=== PATIENT | male | born 1955 | race Caucasian/White ===

== ENCOUNTER → 2021-06-21 12:22 | Outpatient (CLI) | payer MEDICARE, SELFPAY ==
--- NOTE | 2021-06-21 12:28 | CA_ITS ---
APPROVED REPORT EXAM: Comprehensive 2D, Doppler, and color-flow Echocardiogram Vertical Boring Mill Operator: Josie Langford RDCS Ht: 6 ft 0 in Wt: 258lbs BSA: 2.37 BP: 160/84 mmHg Indications: SOA,HTN,OBESITY 2D Dimensions LVOT 2.49 cm (M/F) 1.5-2.5 M-Mode Dimensions RVDd 3.20 cm (0.9-2.6) LA Diam 4.88 cm (1.9-4.0) LVDd 7.53 cm (3.5-5.7) Ao Diam 4.29 cm (2.0-3.7) LVDs 6.59 cm (3.5-5.7) IVSd 1.18 cm (0.6-1.1) PWd 0.98 cm (0.6-1.1) EF (Teich) 26.00% FS 12.50% EDV (Teich) 301.00 mL ESV (Teich) 222.80 mL LV Diastology E Decel Time 83.00 (160-240 msec) E/A Ratio 3.2 MED E' 3.20 (< 7 cm/sec) E'/MED E' Ratio 23.88 (>14) LAT E' 4.50 (<10 cm/sec) E/LAT E' Ratio 16.98 (>14) Aortic Valve AI PHT 361.00 ms Mitral Valve MV E Max Que. 76.00 (40-130 cm/s) MV A Velocity 24.00 (40-130 cm/s) E/A Ratio 3.16 MV Decel. Time 83.00 (160-240 ms) MV PHT 24.00 ms Tricuspid Valve TR P. Velocity 329.00 cm/s RAP Estimate 10.00 mmHg RVSP 53.40 mmHg Left Ventricle Left atrium is moderately enlarged, left ventricle is mildly dilated, there is moderately reduced left ventricular systolic function, visually estimated ejection fraction 35 to 40% with left ventricular global hypokinesis. Diastolic parameters are inconclusive. Right Ventricle Right atrium and right ventricle mildly enlarged with normal contractility. Aortic Valve Aortic valve is thickened and calcified with mild aortic insufficiency. Mitral Valve Mitral valve leaflets are minimally thickened, there is mitral regurgitation present which is difficult to quantify this is likely in moderate to severe range, a transesophageal echocardiogram is recommended for further evaluation. Tricuspid Valve Tricuspid valve grossly normal, there is mild tricuspid regurgitation, tricuspid regurgitation jet velocity is inadequate for calculation of the right ventricular systolic pressure. Pulmonic Valve Pulmonic valve is poorly visualized. Great Vessels Aortic root is normal size. Inferior vena cava is not well visualized. Pericardium No significant pericardial effusion noted. Conclusion 1. Moderately enlarged left atrium, dilated left ventricle, moderate reduction left ventricular systolic function, visually estimated ejection fraction approximately 35 to 40%, left ventricle is globally hypokinetic. Diastolic parameters are inconclusive. 2. Thickened and calcified aortic valve with mild aortic insufficiency. 3. Minimally thickened mitral valve, there is mitral regurgitation which is difficult to quantify as described above, a transesophageal echocardiogram is recommended. 4. No significant pericardial effusion noted. Electronically signed by : Fausto Gary MD 06/22/2021 16:05:01
--- NOTE | 2021-06-21 13:05 | XR_ITS ---
PROCEDURE: XR CHEST 2V CLINICAL HISTORY: dyspnea COMPARISON: No exams were available for comparison FINDINGS: There is mild cardiomegaly without failure. The lungs are clear without infiltrates, suspicious nodules, or pleural effusions. No acute bony abnormalities. IMPRESSION: No acute findings. Dictated by: Cruz Layne MD 06/21/2021 14:38 Cruz Layne MD in [place] 06/21/2021 14:38
== END ==
PROVIDERS: PCP Family Medicine; Visit Provider Internal Medicine
DX: R06.00 Dyspnea, unspecified (principal)
CPT/HCPCS: 71046; 93306

== ENCOUNTER 2021-07-03 11:09 | Day surgery (SDC) | payer MEDICARE, SELFPAY ==
[2021-07-03] VITALS (10 sets, daily range): BP systolic 159–199; BP diastolic 66–112; PULSE 60–76; RESP 18; TEMP 36.7; O2SAT 95–97; BMI 34.8
--- NOTE | 2021-07-03 07:12 | IR_ITS ---
APPROVED REPORT Patient Location: Outpatient Real Property Appraiser: BRENDA Cole RT (R) PROCEDURES Right heart catheterization Left heart catheterization Left ventriculogram Selective coronary angiogram INDICATION Systolic congestive heart failure, Pulmonary hypertension, Class III-IV [place] [employer] heart failure, Worsening angina pectoris, Informed consent was obtained prior to the procedure. COMPLICATIONS NONE Estimated Blood Loss: LESS THAN 10 ML TECHNIQUE One percent lidocaine was used to anesthetize the right anterior aspect of the right wrist. The right radial artery was accessed via the Seldinger technique and a 6 Romansh hydrophilic sheath was placed in the right radial artery. Following this one percent lidocaine was used to anesthetize the right anterior aspect of the right neck. The right internal jugular vein was accessed via the Seldinger technique and a 7 Romansh sheath was placed in the right internal jugular vein. Following this an arterial cocktail was administered using 5000U heparin, 2.5 mg verapamil, 1mg Lidocaine and 800mcg nitroglycerin into the right radial sheath. A trap catheter was used to perform left heart catheterization left ventriculogram and selective coronary angiography while a [place] catheter was used to perform right heart catheterization. Saturations were obtained in the pulmonary artery and right atrium. At the end of the procedure the arterial sheath was removed good hemostasis was achieved using Traclet band. Patient was transferred to the postop holding area in stable condition for venous sheath removal. ANGIOGRAPHIC RESULTS The left main artery Normal The left anterior descending artery Has mild proximal 10% luminal irregularities with mid vessel 10% luminal irregularities. A 1.5 mm first diagonal artery has a mid vessel 70% hazy stenosis The circumflex artery Is nondominant yet still large vessel with mild 10% luminal irregularities The right coronary artery Large dominant with mild diffuse 10% luminal irregularities The LORENZ ventriculogram reveals Moderate left ventricular dilatation severe global hypokinesis estimate ejection fraction 30% The left ventricular end-diastolic pressure 30 mmHg Right atrial pressure 15 mmHg Pulmonary pressure 60/30 mmHg Pulmonary occlusion pressure 25 mmHg Right atrial saturation 76% Pulmonary saturation 75% IMPRESSION Mild nonflow limiting coronary disease Severe nonischemic cardiomyopathy Severe pulmonary hypertension PLAN 1. Standard therapy for systolic heart failure 2. Increase diuretics 3. Offered patient LifeVest while continuing with medical therapy to determine if ejection fraction improves 4. Recommend Covid IgG test to determine if patient previously experienced Covid which could be the etiology for the cardiomyopathy 5. Continue risk factor modification 6. Sleep study Electronically signed by : Frederic Whitehead MD 07/03/2021 13:22:31
[2021-07-03 11:42] LABS: Coronavirus 19, PCR Not Detected (NotDetected); Influenza A, PCR Not Detected (NotDetected); Influenza B, PCR Not Detected (NotDetected)
[2021-07-03 11:54] LABS: Chloride 104 mmol/L (98-107); Potassium 4.6 mmoL/L (3.5-5.1); Sodium 141 mmol/L (136-145)
[2021-07-03 11:57] LABS: Basophils # 0.1 K/mm3 (0-0.2); Basophils % 0.9 % (0.1-2.0); Blood Urea Nitrogen 25 mg/dl (9-20); Creatinine Clearance Estimated 74 mL/min (50-200); Eosinophils # 0.3 K/mm3 (0.0-0.4); Eosinophils % 3.5 % (0.1-12.0); Estimated Glomerular Filt Rate 43 ml/min (>60); GFR (African American) 52 ML/MIN (>60); Hematocrit 55.3 % (42.0-52.0); Hemoglobin 17.3 g/dL (14.1-18.0); Lymphocytes # 1.7 K/mm3 (0.7-4.5); Lymphocytes % 19.5 % (10-50); Mean Corpuscular HGB Conc 31.3 g/dL (31.8-35.4); Mean Corpuscular Hemoglobin 32.1 pg (27.0-31.2); Mean Corpuscular Volume 102.6 fl (80-94); Mean Platelet Volume 9.2 fl (7.4-10.4); Monocytes # 0.7 K/mm3 (0.1-1.0); Monocytes % 8.4 % (1.7-9.3); Neutrophils # 5.8 K/mm3 (1.8-7.8); Neutrophils % 67.8 % (37.0-80.0); Platelet Count 179 K/mm3 (142-424); Red Blood Count 5.39 M/mm3 (4.60-6.20); Red Cell Distribution Width 13.6 % (11.5-17.5); White Blood Count 8.5 K/mm3 (4.8-10.8)
[2021-07-03 11:58] LABS: Anion Gap 17.6 mEq/L (5-15); Calcium 9.2 mg/dl (8.4-10.2); Carbon Dioxide 24 mmol/L (22.0-30.0); Glucose 130 mg/dl (74-100)
[2021-07-03 14:25] LABS: CATHL Arterial O2 SAT 75.4 % (90-100)
[2021-07-03 14:33] LABS: Coronavirus 19 IgG Antibody Positive (Negative); Coronavirus 19 IgM Antibody Negative (Negative)
== END 2021-07-03 16:03 | disposition home or self-care (01) ==
LOC: CATHLAB 11:12
PROVIDERS: PCP Family Medicine; Visit Provider Internal Medicine
DX: I42.9 Cardiomyopathy, unspecified; R06.00 Dyspnea, unspecified; I25.118 Atherosclerotic heart disease of native coronary artery with other forms of angina pectoris; I27.20 Pulmonary hypertension, unspecified; I11.0 Hypertensive heart disease with heart failure; I50.22 Chronic systolic (congestive) heart failure; Z20.822 Contact with and (suspected) exposure to COVID-19
CPT/HCPCS: 80048; 82810; 85025; 86328; 93460; 99152; 99153; C1725; C1760; C1769; C1894; J1644; Q9967; U0003

== ENCOUNTER 2021-07-20 11:51 | Day surgery (SDC) | payer MEDICARE, SELFPAY ==
[2021-07-20] VITALS (7 sets, daily range): BP systolic 105–172; BP diastolic 52–84; PULSE 60–63; RESP 17–20; O2SAT 92–97; BMI 34.8
--- NOTE | 2021-07-20 12:19 | CA_ITS ---
APPROVED REPORT EXAM: Comprehensive 2D, Doppler, and color-flow Echocardiogram Air Sampler: Luma Davison RT(R) Ht: 6 ft 0 in Wt: 248lbs BSA: 2.33 BP: 160/84 mmHg Indications: MR, CAD, CHF, CM, HTN Procedure After obtaining informed consent, patient underwent transesophageal echo in the [facility]. Type of Sedation : Conscious Sedation Sedation was administered by Juan BajwaNRiya. Transesophageal probe was inserted and advanced into esophagus without difficulty by Dr. Svitlana Garcia. The MARCELLA was performed without complications. Throughout the procedure, the blood pressure, pulse oximetry, cardiac rhythm, and rate were monitored. The patient tolerated the procedure without adverse effects. Recovery from conscious sedation was uneventful and vital signs were stable. Left Ventricle Left ventricle is mildly dilated, estimated ejection fraction is 40%, left ventricle is globally hypokinetic. Right Ventricle Right ventricle is mildly enlarged with normal contractility. Atria Left atrium is mildly enlarged, left atrial appendage free of thrombus, there is adequate appendage flow by spectral Doppler. Right atrium is mildly enlarged. Intra-atrial septum is intact, there is no flow across the atrial septum, agitated saline contrast study fails to identify intracardiac shunt. Aortic Valve Aortic valve is thickened and calcified without restriction in the leaflet mobility, there is degenerative changes present mostly involving the right coronary cusp and noncoronary cusp with failure to coaptation, there is eccentric jet of aortic insufficiency which is likely in severe range. Mitral Valve SystolicMitral valve leaflets are minimally thickened, there is mild to moderate mitral regurgitation, flow reversal seen in the pulmonary vein. Tricuspid Valve Tricuspid valve grossly normal, there is mild tricuspid rotation. Pulmonic Valve Pulmonic valve is grossly normal. Great Vessels Aortic root is normal size. Ascending, arch and descending thoracic aorta there is no aneurysm or dissection, normal bile atheromatous plaque seen in the descending thoracic aorta. Inferior vena cava is not well visualized. Pericardium No significant pericardial effusion noted. Conclusion 1. Dilated left ventricle estimated ejection fraction approximately 40% left ventricle globally hypokinetic. 2. Abnormal aortic valve with severe aortic insufficiency. 3. Mild to moderate mitral regurgitation. 4. Other ancillary findings as described above. Electronically signed by : Fausto Gary MD 07/20/2021 14:37:59
[2021-07-20 12:50] LABS: Coronavirus 19, PCR Not Detected (NotDetected); Influenza A, PCR Not Detected (NotDetected); Influenza B, PCR Not Detected (NotDetected)
--- NOTE | 2021-07-20 13:14 | P.PN_ITS ---
[facility] Anesthesia Checklist - Patient Identification Patient Identification: Arm Band - Structural Data Admitted From: Home Planned Operative Procedure/s: MARCELLA Consent for Planned Operative Procedure(s) Verified: Yes Verified Documents: Surgical Consent, History and Physical - Additional verifications Anesthesia Reactions: No - Airway Assessment C-Spine Mobility Assessed: Yes (mp2) TMJ Mobility Assessed: Yes Dentition: Good Dentition - Neurological Assessment Level of Consciousness: Awake, Alert - Anesthesia Plan Anesthesia Risk discussed: Yes Anesthesia Plan: Verified ASA Class: III Anesthesia Type: MAC [facility] History I have reviewed the patient's past medical history: Yes Medical History: Reports:: Congestive Heart Failure, Coronary Artery Disease, Hypertension, Valvular Heart Disease Denies:: Cancer, Diabetes Mellitus Type 1, Diabetes Mellitus Type 2, Internal Pacemaker, MRSA, Seizures *Have you ever received a pneumonia vaccine?: No *Have you received a flu vaccine this season?: No Anesthesia experience/problems:: nac Laterality Cases: Right: Total Hip Replacement Other Surgeries: No: Pacemaker Amputation: No Fractures: No - *Social History Smoking Status: Never smoker Alcohol Intake: never Substance Use Type: denies use *Occupational Status:: retired Housing: house Household Members: spouse *Travel in the last 8 weeks: Inside the [facility] Family Hx:: Coronary Artery Disease, Heart Attack, Cancer
== END 2021-07-20 14:10 | disposition home or self-care (01) ==
LOC: CATHLAB 11:54
PROVIDERS: PCP Family Medicine; Visit Provider Internal Medicine Cardiovascular Disease
DX: I25.10 Atherosclerotic heart disease of native coronary artery without angina pectoris (principal); I50.9 Heart failure, unspecified; I42.9 Cardiomyopathy, unspecified; I34.8 Other nonrheumatic mitral valve disorders; I11.0 Hypertensive heart disease with heart failure; R06.00 Dyspnea, unspecified; R60.9 Edema, unspecified; R79.89 Other specified abnormal findings of blood chemistry; Z20.822 Contact with and (suspected) exposure to COVID-19
CPT/HCPCS: 93312; U0003

== ENCOUNTER 2025-09-30 10:49 | Outpatient (CLI) | payer MEDICARE, SELFPAY ==
--- NOTE | 2025-09-30 11:15 | CA_ITS ---
APPROVED REPORT EXAM: Comprehensive 2D, Doppler, and color-flow Echocardiogram Certified Activities Director: Josie Langford RDCS Ht: 6 ft 0 in Wt: 243lbs BSA: 2.31 BP: 149/85 mmHg Indications: pre op risk assessment for knee repair, mild-mod MR, AV replaced porcine 2020. 2D Dimensions LA Volume 51.10 mL LA Volume Index 22.12 mL/m2 (M/F) 16-34 EF AP4 39.00 % GL Strain -7.9 % M-Mode Dimensions RVDd 2.45 cm (0.9-2.6) LA Diam 5.13 cm (1.9-4.0) LVDd 4.42 cm (3.5-5.7) LVDs 2.80 cm (3.5-5.7) IVSd 1.03 cm (0.6-1.1) PWd 0.88 cm (0.6-1.1) EF (Teich) 66.60% FS 36.70% EDV (Teich) 88.60 mL TAPSE 1.39 (<1.7) ESV (Teich) 29.60 mL LV Diastology E Decel Time 150 (160-240 msec) E/A Ratio 0.8 Aortic Valve JOSELYN Index 0.62 cm2/m2 AoV Peak Que. 226.0 (50-130 cm/s) AO Peak GR. 20.40 mmHg AO Mean GR. 10.10 (<5 mmHg) AO VTI 47.1 (18-25 cm) JOSELYN (VTI) 1.48 (2.5-4.5 cm2) Mitral Valve MV E Max Que. 60.0 (40-130 cm/s) MV A Velocity 76.0 (40-130 cm/s) E/A Ratio 0.79 MV PHT 44.0 ms Tricuspid Valve TR P. Velocity 225.00 cm/s Left Ventricle The left ventricle is normal size. Left ventricular systolic function is normal. The left ventricular ejection fraction is within the normal range. There is increased left ventricular wall thickness. There is normal LV segmental wall motion. The left ventricular diastolic function is indeterminate. LVEF is 55% Right Ventricle The right ventricle is normal size. The right ventricular systolic function is normal. Atria Left atrium is mildly dilated. Right atrium is mildly dilated. There is no color Doppler evidence of interatrial shunt. Aortic Valve s/p bioprosthetic AVR. The prosthesis is well-seated. Peak velocity 2.2 m/s. Mean AV gradient 10 mmHg. Max AV gradient 20 mmHg. Trace aortic regurgitation is present. Mitral Valve The mitral valve is mildly thickened. No evidence of mitral valve stenosis. At least moderate mitral regurgitation is present. The MR jet is eccentric and anteriorly directed (may be underestimated on TTE). Tricuspid Valve The tricuspid valve leaflets are thin and pliable. Mild tricuspid regurgitation. RVSP is 20-25 mmHg. Pulmonic Valve The pulmonary valve is grossly normal in structure. Trace pulmonic valve regurgitation is present. Great Vessels The aortic root is normal in size. IVC is normal in size and collapses >50% with inspiration. Pericardium There is no pericardial effusion. Other Information Study Quality: Technically Difficult Conclusion Normal biventricular systolic function. Biatrial dilation. s/p bioprosthetic AVR. Acceptable AV gradients (Peak velocity 2.2 m/s. Mean AV gradient 10 mmHg. Max AV gradient 20 mmHg). At least moderate mitral regurgitation is present. The MR jet is eccentric and anteriorly directed (may be underestimated on TTE). Mild TR. In the setting of eccentric MR jet, correlation with old MARCELLA findings from 2020 is suggested. If appropriate, further evaluation with repeat outpatient MARCELLA and possibly cardiac MRI (cardiomyopathy protocol) may be suggested if clinical symptoms are present to evaluate for the ongoing severity of MR. Clinical correlation is required. Electronically signed by : Eloina Arrieta MD 10/09/2025 20:37:22
--- OUTSIDE RECORDS SUMMARY | 2025-09-30 12:03 | XMS_ITS | Data Portability ---
Author Organization [facility] Address [address] [place] [address] Assessment Encounter Date Assessment Date Assessment LastModified by Organization Details LastModified Time 09/06/2025 09/06/2025 -Medications were reviewed and any necessary updates and renewals were made, patient instructed to complete as prescribed. -The potential side effects of medications were discussed. -Counseling was done on care goals and ways to prevent future hospitalizatio ns. -Further treatment per orders listed below. [email or web address] Not available 09/06/2025 16:34:39 09/13/2025 09/13/2025 -Medications were reviewed and any necessary updates and renewals were made, patient instructed to complete as prescribed. -The potential side effects of medications were discussed. -Counseling was done on care goals and ways to prevent future hospitalizatio ns. -Further treatment per orders listed below. [email or web address] Not available 09/13/2025 14:36:46 Plan of Treatment Reminders Order Date Submit Date Provider Last Modified By Organization Details Last Modified Time Details Appointments History and Physical 20 2024 10:00A M Candice melendez MD Not available Not available Not available Lab CBC w/ auto diff 2024 025 GRACE [facility], [address], [place], [address], 09/07/2025 04:10:59 CMP, serum or plasma 2024 025 GRACE [facility], [address], [place], [address], 09/07/2025 04:11:00 HbA1c (hemoglob in A1c), blood 2024 GRACE [facility], [address], [address], [place], [address], 09/07/2025 04:11:00 magnesium , serum or plasma 2024 GRACE [facility], [address], [address], [place], [address], 09/07/2025 04:11:01 microorga nism identific ation, unspecifi ed specimen 2024 [email or web address] [facility], [address], [address], [place], [address], 12/10/2024 08:07:19 Referral None recorded. Procedures None recorded. Surgeries None recorded. Imaging electromy ogram + nerve conductio n study 2024 [facility], [address] [facility] , [place], [address], 09/14/2025 15:13:31 MRI, brain, w/o contrast 2024 GRACE Dinh (Centralized Scheduling), [address] [place] [address] , [place], [address], 09/15/2025 12:55:51 Medication Orders amlodipin e 10 mg tablet 2024 [facility], [address], [place], [address], 09/06/2025 16:52:02 erythromy ar 5 mg/gram (0.5 %) eye ointment 2024 [facility], [address], [place], [address], 09/06/2025 16:48:26 Diflucan 150 mg tablet 2024 025 [facility], [address], [place], [address], 03/31/2025 15:00:56 Mucinex 600 mg tablet, extended release 2023 024 [facility], [address], [place], [address], 12/03/2024 15:45:51 cefdinir 300 mg capsule 2023 024 [facility], [address], [place], [address], 12/03/2024 15:45:48 Depo-Medr ol 80 mg/mL suspensio n for injection 2023 024 Not available 12/03/2024 09:02:14 albuterol sulfate HFA 90 mcg/actua tion aerosol inhaler 2023 024 [facility], [address], [place], [address], 10/20/2024 09:39:21 Patient TargetsNo targets recorded. Patient Instructions Encounter Date Encounter Id Patient Instructions Last Modified By Organization Details Last Modified Time 03/31/2025 [id number] Apply warm compresses and use medication as directed ehimes Not available 03/31/2025 15:16:07 Reason for Referral None Reported. Results Created Date Observation Date Name Description Value Unit Range Abnormal Flag Note LastModifiedBy Organization Detail LastModifiedTime 12/03/1912/07/2024 GENIT AL CULTU RE, ROUTI NE genital culture, routine Final report Speci men stabi lity note: A swab trans port (ie., ESwab , Amies agar gel) recei aaron by the lab more than 24 hours after colle ction may resul t in reduc ed recov akash of Neiss eria gonor rhoea e (GC). (This is infor matio nal only and may not apply to this speci men.) Not Available [facility] ([facility]) [address] [place], [address], 12/07/2024 10:07:47 12/03/19 25 12/07/2024 GENIT AL CULTU RE, PATRIZIA NE result 1 Mixed skin danica Not Available [facility] ([facility]) [address] [facility], [place], [address], 12/07/2024 10:07:47 12/03/19 25 2024 TEST CODE KIRK E test code change Commen t Plebridgette juan note that the Micro biolo gy test code was sarah grey to refle ct the speci men sourc e or trans port recei aaron. Not Available [facility] ([facility]) [address] [facility], [place], [address], 12/07/2024 10:07:49 09/06/2009/07/2025 CBC WITH DIFFE RENTI AL/PL ATELE T WBC 8.8 x10e3 /uL 3.4-10 .8 normal Not Available [facility] ([facility]) [address] [facility], [place], [address], 09/07/2025 04:10:59 09/06/2009/07/2025 CBC WITH DIFFE RENTI AL/PL ATELE T RBC 4.87 x10e6 /uL 4.14-5 .80 normal Not Available [facility] ([facility]) [address] [place], [address], 09/07/2025 04:10:59 09/06/2009/07/2025 CBC WITH DIFFE RENTI AL/PL ATELE T hemoglobin 15.7 g/dL 13.0-1 7.7 normal Not Available [facility] ([facility]) [address] [place], [address], 09/07/2025 04:10:59 09/06/2009/07/2025 CBC WITH DIFFE RENTI AL/PL ATELE T hematocrit 46.6 % 37.5-5 1.0 normal Not Available [facility] ([facility]) [address] [place], [address], 09/07/2025 04:10:59 09/06/2009/07/2025 CBC WITH DIFFE RENTI AL/PL ATELE T MCV 96 fL 79-97 normal Not Available [facility] ([facility]) [address] [place], [address], 09/07/2025 04:10:59 09/06/2009/07/2025 CBC WITH DIFFE RENTI AL/PL ATELE T MCH 32.2 pg 26.6-3 3.0 normal Not Available [facility] ([facility]) [address] [place], [address], 09/07/2025 04:10:59 09/06/2009/07/2025 CBC WITH DIFFE RENTI AL/PL ATELE T MCHC 33.7 g/dL 31.5-3 5.7 normal Not Available [facility] ([facility]) [address] [place], [address], 09/07/2025 04:10:59 09/06/2009/07/2025 CBC WITH DIFFE RENTI AL/PL ATELE T RDW 12.1 % 11.6-1 5.4 Not Available [facility] ([facility]) [address] [place], [address], 09/07/2025 04:10:59 09/06/2009/07/2025 CBC WITH DIFFE RENTI AL/PL ATELE T platelets 153 x10e3 /uL 150-45 0 normal Not Available [facility] ([facility]) [address] [place], [address], 09/07/2025 04:10:59 09/06/2009/07/2025 CBC WITH DIFFE RENTI AL/PL ATELE T neutrophils 51 % not estab. normal Not Available [facility] ([facility]) [address] [place], [address], 09/07/2025 04:10:59 09/06/2009/07/2025 CBC WITH DIFFE RENTI AL/PL ATELE T lymphs 26 % not estab. normal Not Available [facility] ([facility]) [address] [place], [address], 09/07/2025 04:10:59 09/06/2009/07/2025 CBC WITH DIFFE RENTI AL/PL ATELE T monocytes 13 % not estab. normal Not Available [facility] ([facility]) [address] [facility], [place], [address], 09/07/2025 04:10:59 09/06/2009/07/2025 CBC WITH DIFFE RENTI AL/PL ATELE T eos 9 % not estab. normal Not Available [facility] ([facility]) [address] [facility], [place], [address], 09/07/2025 04:10:59 09/06/2009/07/2025 CBC WITH DIFFE RENTI AL/PL ATELE T basos 1 % not estab. normal Not Available [facility] ([facility]) [address] [facility], [place], [address], 09/07/2025 04:10:59 09/06/2009/07/2025 CBC WITH DIFFE RENTI AL/PL ATELE T immature cells [employer] DIRECT[employer] Not Available [facility] ([facility]) [address] [place], [address], 09/07/2025 04:10:59 09/06/20 25 09/07/2025 CBC WITH DIFFE RENTI AL/PL ATELE T neutrophils (absolute) 4.5 x10e3 /uL 1.4-7. 0 normal Not Available [facility] ([facility]) [address] [facility], [place], [address], 09/07/2025 04:10:59 09/06/2009/07/2025 CBC WITH DIFFE RENTI AL/PL ATELE T lymphs (absolute) 2.3 x10e3 /uL 0.7-3. 1 normal Not Available [facility] ([facility]) [address] [facility], [place], [address], 09/07/2025 04:10:59 09/06/20 25 09/07/2025 CBC WITH DIFFE RENTI AL/PL ATELE T monocytes(ab solute) 1.2 x10e3 /uL 0.1-0. 9 above high normal Not Available [facility] ([facility]) [address] [facility], [place], [address], 09/07/2025 04:10:59 09/06/20 25 09/07/2025 CBC WITH DIFFE RENTI AL/PL ATELE T eos (absolute) 0.8 x10e3 /uL 0.0-0. 4 above high normal Not Available [facility] ([facility]) [address] [facility], [place], [address], 09/07/2025 04:10:59 09/06/20 25 09/07/2025 CBC WITH DIFFE RENTI AL/PL ATELE T baso (absolute) 0.1 x10e3 /uL 0.0-0. 2 normal Not Available [facility] ([facility]) [address] [place], [address], 09/07/2025 04:10:59 09/06/20 25 09/07/2025 CBC WITH DIFFE RENTI AL/PL ATELE T immature granulocytes 0 % not estab. Not Available [facility] ([facility]) [address] [place], [address], 09/07/2025 04:10:59 09/06/20 25 09/07/2025 CBC WITH DIFFE RENTI AL/PL ATELE T immature grans (abs) 0.0 x10e3 /uL 0.0-0. 1 Not Available [facility] ([facility]) [address] [facility], [place], [address], 09/07/2025 04:10:59 09/06/20 25 09/07/2025 CBC WITH DIFFE RENTI AL/PL ATELE T NRBC [employer] DIRECT[employer] Not Available [facility] ([facility]) [address] [facility], [place], [address], 09/07/2025 04:10:59 09/06/2009/07/2025 CBC WITH DIFFE RENTI AL/PL ATELE T hematology comments: [employer] DIRECTOR Not Available [facility] ([facility]) [address] [facility], [place], [address], 09/07/2025 04:10:59 09/06/2009/07/2025 COMP. METAB OLIC PANEL (14) glucose 87 mg/dL 70-99 normal Not Available [facility] ([facility]) [address] [facility], [place], [address], 09/07/2025 04:10:59 09/06/20 25 09/07/2025 COMP. METAB OLIC PANEL (14) BUN 25 mg/dL 8-27 normal Not Available [facility] ([facility]) [address] [facility], [place], [address], 09/07/2025 04:10:59 09/06/2009/07/2025 COMP. METAB OLIC PANEL (14) creatinine 1.47 mg/dL 0.76-1 .27 above high normal Not Available [facility] ([facility]) [address] [place], [address], 09/07/2025 04:10:59 09/06/20 25 09/07/2025 COMP. METAB OLIC PANEL (14) eGFR 51 mL/mi n/1.7 3 >59 below low normal Not Available [facility] ([facility]) [address] [facility], [place], [address], 09/07/2025 04:10:59 09/06/2009/07/2025 COMP. METAB OLIC PANEL (14) BUN/creatini ne ratio 17 10-24 normal Not Available [facility] ([facility]) [address] [facility] [place], [address], 09/07/2025 04:10:59 09/06/2009/07/2025 COMP. METAB OLIC PANEL (14) sodium 142 mmol/ L 134-14 4 normal Not Available [facility] ([facility]) [address] [facility] [place], [address], 09/07/2025 04:10:59 09/06/20 25 09/07/2025 COMP. METAB OLIC PANEL (14) potassium 4.2 mmol/ L 3.5-5. 2 normal Not Available [facility] ([facility]) [address] [facility], [place], [address], 09/07/2025 04:10:59 09/06/2009/07/2025 COMP. METAB OLIC PANEL (14) chloride 105 mmol/ L 96-106 normal Not Available [facility] ([facility]) [address] [facility] [place], [address], 09/07/2025 04:10:59 09/06/2009/07/2025 COMP. METAB OLIC PANEL (14) carbon dioxide, total 23 mmol/ L 20-29 normal Not Available [facility] ([facility]) [address] [facility] [place], [address], 09/07/2025 04:10:59 09/06/20 25 09/07/2025 COMP. METAB OLIC PANEL (14) calcium 9.0 mg/dL 8.6-10 .2 normal Not Available [facility] ([facility]) [address] [facility] [place], [address], 09/07/2025 04:10:59 09/06/20 25 09/07/2025 COMP. METAB OLIC PANEL (14) protein, total 6.6 g/dL 6.0-8. 5 normal Not Available [facility] ([facility]) [address] [facility], [place], [address], 09/07/2025 04:10:59 09/06/20 25 09/07/2025 COMP. METAB OLIC PANEL (14) albumin 4.2 g/dL 3.8-4. 8 normal Not Available [facility] ([facility]) [address] [facility] [place], [address], 09/07/2025 04:10:59 09/06/2009/07/2025 COMP. METAB OLIC PANEL (14) globulin, total 2.4 g/dL 1.5-4. 5 Not Available [facility] ([facility]) [address] [facility], [place], [address], 09/07/2025 04:10:59 09/06/2009/07/2025 COMP. METAB OLIC PANEL (14) bilirubin, total 0.6 mg/dL 0.0-1. 2 normal Not Available [facility] ([facility]) [address] [facility], [place], [address], 09/07/2025 04:10:59 09/06/2009/07/2025 COMP. METAB OLIC PANEL (14) alkaline phosphatase 82 IU/L 47-123 normal Not Available [facility] ([facility]) [address] [facility], [place], [address], 09/07/2025 04:10:59 09/06/20 25 09/07/2025 COMP. METAB OLIC PANEL (14) AST (SGOT) 28 IU/L 0-40 normal Not Available [facility] ([facility]) [address] [facility], [place], [address], 09/07/2025 04:10:59 09/06/20 25 09/07/2025 COMP. METAB OLIC PANEL (14) ALT (SGPT) 21 IU/L 0-44 normal Not Available [facility] ([facility]) [address] [facility], [place], [address], 09/07/2025 04:10:59 09/06/20 25 09/07/2025 HEMOG LOBIN A1C hemoglobin A1C 5.5 % 4.8-5. 6 normal Predi abete s: 5.7 - 6.4 Diabe eunice: >6.4 Glyce jhon contr ol for adult s with diabe eunice: <7.0 Not Available [facility] ([facility]) [address] [facility], [place], [address], 09/07/2025 04:11:00 09/06/20 25 09/07/2025 MAGNE SIUM magnesium 2.0 mg/dL 1.6-2. 3 normal Not Available [facility] ([facility]) [address] [facility], [place], [address], 09/07/2025 04:11:01 09/14/20 25 09/14/2025 elect romyo gram + nerve condu ction study No observ ation record ed. [email or web address] Trevor Hannah [facility] [address] [place], [place], [address], 09/16/2025 11:29:21 09/15/20 25 09/15/2025 MRI, brain , w/o contr ast [facility] Name: JOSE GREGORY,[facility] [address] Phys: Katy [place] [address] : 1955 Age: 69 Sex: M Acct: [id number] Loc: G.MRI PHONE #: Exam Date: 2024 Status : REG CLI FAX #: Rad# [id number] Unit# [id number] Admit Date: 2024 EXAMS: CPT CODE: [id number] MRI BRAIN W/O CONTRA ST 94736 MRI brain HISTOR Y: Headac hes COMPAR SANDRA: 2024 CT head FINDIN GS: No acute or subacu te infarc ts apprec iated on diffus ion/AD C sequen bogdan. Mild atroph y and very mild chroni c small vessel ischem ic change in right sims radiat a and centru m semiov sameer white matter and around the cloth mercerizing supervisor ior horns of latera l ventri cles worse on the left than right. No mass effect or midlin e shift detect ed. Partia lly empty sella turcic a. This is a normal varian t in this age group. Normal signal in the brains tem. Mild chroni c small vessel change s in the basal gangli a areas. No acute or subacu te infarc ts seen on diffus ion sequen bogdan. No intra or extra- axial mass lesion or collec tion seen. Mastoi ds and parana romulo sinuse s appear clear. Intrao rbital struct ures are normal . IMPRES AMBER: Mild atroph y and mild chroni c small vessel ischem ic change s in the white matter . No acute infarc ts. Electr onical ly signed by: Sadie Velasco MD 2024 12:51 PM EST RP Workst ation: [id number] Electr onical ly Signed by SADIE VELASCO on 2024 at 1247 Report ed and signed by: Freida VELASCO CC: Candice george MD Dictat ed Date/T gordo: 2024 (1247) Techno logist : ARTI PARISI Transc ribed Date/T gordo: 2024 (1247) Transc riptio nist: DR.BUC BUENO Electr onic Signat ure Date/T gordo: 2024 (1247) Printe d Date/T gordo: 2024 (1254) BATCH NO: N/A PAGE 1 Signed Report CC'ed Logic: Orderi ng Provid er: WENDY TAVAREZ Attend ing Provid er: WENDY TAVAREZ Referr ing Provid er: WENDY TAVAREZ Consul ting Provid er: WENDY TAVAREZ [email or web address] , [place], [address], 09/16/2025 11:29:21 Result Notes Documentation Provider Name and Address Organization Details Recorded Time Mri, Brain, W/o Contrast : [facility] Name: PAUL SAUCEDO [address] [place] [address] Phys: [place] [address] : 1955 Age: 69 Sex: M Acct: [id number] Loc: Jeri.MRI PHONE #: Exam Date: 09/15/2025 Status: REG CLI FAX #: Rad# [id number] Unit# [id number] Admit Date: 09/15/2025 EXAMS: CPT CODE: [id number] MRI BRAIN W/O CONTRAST 25156 MRI brain HISTORY: Headaches COMPARISON: 09/02/2025 CT head FINDINGS: No acute or subacute infarcts appreciated on diffusion/ADC sequences. Mild atrophy and very mild chronic small vessel ischemic change in right sims radiata and centrum semiovale white matter and around the posterior horns of lateral ventricles worse on the left than right. No mass effect or midline shift detected. Partially empty sella turcica. This is a normal variant in this age group. Normal signal in the brainstem. Mild chronic small vessel changes in the basal ganglia areas. No acute or subacute infarcts seen on diffusion sequences. No intra or extra-axial mass lesion or collection seen. Mastoids and paranasal sinuses appear clear. Intraorbital structures are normal. IMPRESSION: Mild atrophy and mild chronic small vessel ischemic changes in the white matter. No acute infarcts. Electronically signed by: Sadie Velasco MD 09/15/2025 12:51 PM [facility] [place] [facility] Reported and signed by: SADIE VELASCO CC: Candice Nguyen MD Dictated Date/Time: 09/15/2025 (0341) Technologist: ARTI PARISI Transcribed Date/Time: 09/15/2025 (6476) Chart Changer: Electronic Signature Date/Time: 09/15/2025 (8564) Printed Date/Time: 09/15/2025 (3492) BATCH NO: N/A PAGE 1 Signed Report CC'ed Logic: Ordering Provider: RENITA TAVAREZ Attending Provider: RENITA TAVAREZ Referring Provider: RENITA TAVAREZ Consulting Provider: RENITA Henry [facility], [place] - [facility] 09/16/2025 11:29:21 Problems Name Problem SNOMED Code Status Onset Date Resolution Date Notes Provider Name and Address Organization Details Recorded Time Family history of cancer of colon 582010030 Active Pt's mother; Colonosc opy 12/2014 rpt 3yr Narciso Villalta RN [address] [facility], [place], [address] , [place] - [facility] 0 15:24:27 Suspecte d COVID-19 [id number] Completed 07/24/2021 Removal Reason: Problem added by user [email or web address] from the COVID-19 watch flag Luma Campos RN [address], [place], [address] , [place] - [facility] 1 09:46:17 Hyperten sive disorder 96667506 Active 2017 Narciso Villalta RN [address], [place], [address] , [place] - [facility] 0 15:24:27 Body mass index 30+ - obesity 720559297 Active 2017 Narciso Villalta RN [address], [place], [address] , [place] - [facility] 0 15:24:27 Chronic kidney disease stage 3 474363939 Active 2019 Candice tejada MD [address], [place], [address] , [place] - [facility] 0 15:25:10 Problem Notes None recorded. Procedures Surgical History Date Name Laterality Status Provider Name and Address Organization Details Recorded Time 09/06/20 25 Medication Reconcilliation completed Virginia Henry [place] - [facility] 09/06/2025 16:34:39 09/05/20 23 Excision of ingrown toenail completed Candice ahmadi MD [address], [place], [address], [place] - [facility] 09/05/2023 09:07:14 01/25/20 21 Diastolic B/P 80-[address] [place] - [facility] 01/24/2021 15:17:31 01/25/20 21 Systolic B/P greater than or equal to 140 mm [address] completed [address] [place] - [facility] 01/24/2021 15:17:27 06/03/20 20 Systolic B/P less than 130 mm Hg completed Janna Manuel [place] - [facility] 06/03/2020 13:17:07 06/03/20 20 Diastolic B/P 80-89 mm Hg completed Janna Manuel [place] - [facility] 06/03/2020 13:16:58 03/03/20 20 Diastolic B/P 80-89 mm Hg completed Sabrina [place] - [facility] 03/03/2020 13:15:03 03/03/20 20 Systolic B/P greater than or equal to 140 mm Hg completed Sabrina [place] - [facility] 03/03/2020 13:15:01 01/08/20 20 Diastolic B/P 80-[address] [place] - [facility] 01/08/2020 15:05:54 01/08/20 20 Systolic B/P greater than or equal to 140 mm [address] completed [address] [place] - [facility] 01/08/2020 15:05:51 01/05/20 20 Diastolic B/P 80-[address] mm Hg completed [address] [place] - [facility] 01/05/2020 11:19:57 01/05/20 20 Systolic B/P greater than or equal to 140 mm Hg completed [address] [place] - [facility] 01/05/2020 11:19:54 12/10/19 20 Cardiac Cath completed [address] [place] - [facility] 01/08/2020 15:21:00 12/23/19 15 Colonoscopy completed Narciso Villalta RN [address], [place], [address], [place] - [facility] 12/01/2018 09:39:30 Imaging Results None recorded. Procedure Notes None recorded. Medical Equipment None Reported. Allergies Allergen ID Allergen Name Allergen Category Reaction Reaction Severity Criticality Documentation Date Start Date Code Code System Note Provider Name and Address Organization Details Recorded Time 141397 Product containin g penicilli n (product) medicatio n Not available Not available Not available 10/27/2018 60642 8001 SNOMED Arti [place]cke[place], [place] - [facility] 8 14:39:45 13620 penicilli n G potassium medicatio n rash Not available Not available 08/17/20162007 3 RxNorm React ion: Rash; Comme nt: penic illin G potas sium; Not Available [facility] 6 09:01:24 Medications Name Sig Start Date Stop Date Status Note LastModified by Organization Details LastModified Time quetiapin e 25 mg tablet TAKE ONE (1) TABLET BY MOUTH ONCE DAILY 09/12 completed Not Available Not Available Not Available cyclobenz aprine 10 mg tablet 10/27 completed Not Available Not Available Not Available furosemid e 40 mg tablet TAKE ONE (1) TABLET BY MOUTH TWICE DAILY 09/06 completed Not Available Not Available Not Available atorvasta tin 40 mg tablet TAKE ONE TABLET BY MOUTH EVERY NIGHT AT BEDTIME 09/06 completed Not Available Not Available Not Available carvedilo l 25 mg tablet TAKE ONE (1) TABLET BY MOUTH TWICE A DAY FOR BLOOD PRESSURE active Not Available Not Available No t Available potassium chloride ER 10 mEq capsule,e xtended release Take 1 capsule every day by oral route. 01/16 completed Not Available Not Available Not Available carvedilo l 6.25 mg tablet TAKE ONE (1) TABLET BY MOUTH IN THE MORNING AND AT BEDTIME. 09/05 completed Not Available Not Available Not Available doxycycli ne hyclate 100 mg capsule TAKE 1 CAPSULE BY MOUTH TWICE DAILY FOR 7 DAYS 03/16 completed Not Available Not Available Not Available carvedilo l 12.5 mg tablet TAKE ONE (1) TABLET BY MOUTH TWICE DAILY 01/24 completed Not Available Not Available Not Available Depo-Medr ol 40 mg/mL suspensio n for injection 80 mg IM for one dose 03/16 completed Not Available Not Available Not Available lisinopri l 20 mg-hydroc hlorothia zide 12.5 mg tablet TAKE 1 TABLET BY MOUTH EVERY DAY 05/24 completed Not Available Not Available Not Available alprazola m 1 mg tablet TAKE 1 TABLET BY MOUTH ONCE DAILY 02/23 completed Not Available Not Available Not Available fluconazo le 150 mg tablet TAKE ONE (1) TABLET BY MOUTH EVERY DAY FOR FIVE (5) DAYS 03/31 completed Not Available Not Available Not Available hydrocodo ne 5 mg-acetam inophen 325 mg tablet TAKE TWO (2) TABLETS BY MOUTH EVERY FOUR (4) HOURS IF NEEDED FOR SEVERE PAIN (8-10) FOR UP TO 10 DAYS 09/05 completed Not Available Not Available Not Available meloxicam 15 mg tablet TAKE ONE (1) TABLET BY MOUTH EVERY DAY 09/06 completed Not Available Not Available Not Available lisinopri l 20 mg tablet TAKE 1 TABLET BY MOUTH DAILY 01/16 completed Not Available Not Available Not Available prednison e 20 mg tablet 10/27 completed Not Available Not Available Not Available Zithromax Z-Jesus 250 mg tablet TAKE 2 TABLETS (500 MG) BY ORAL ROUTE ONCE DAILY FOR 1 DAY THEN 1 TABLET (250 MG) BY ORAL ROUTE ONCE DAILY FOR 4 DAYS 09/12 completed Not Available Not Available Not Available cyanocoba law (vit B-12) 1,000 mcg tablet Take 1 tablet every day by oral route. 07/20 completed Not Available Not Available Not Available potassium chloride ER 10 mEq tablet,ex tended release TAKE 1 TABLET BY MOUTH EVERY DAY 01/16 completed Not Available Not Available Not Available sulfameth oxazole 800 mg-trimet hoprim 160 mg tablet TAKE 1 TABLET BY MOUTH EVERY 12 HOURS FOR 5 DAYS 10/20 completed Not Available Not Available Not Available carvedilo l 3.125 mg tablet TAKE ONE TABLET BY MOUTH WITH BREAKFAS T AND EVENING MEAL 09/05 completed Not Available Not Available Not Available Depo-Medr ol 80 mg/mL suspensio n for injection 80 mg IM for one dose 12/03 completed Not Available Not Available Not Available meloxicam 7.5 mg tablet TAKE 1 TABLET EVERY DAY 07/09 completed Not Available Not Available Not Available ceftriaxo ne 1 gram solution for injection one gram IM for one dose 01/08 completed Not Available Not Available Not Available alprazola m 0.25 mg tablet 1 tablet po daily 01/05 completed Not Available Not Available Not Available potassium chloride ER 20 mEq tablet,ex tended release(p art/cryst ) TAKE 1 TABLET BY MOUTH EVERY DAY 01/16 completed Not Available Not Available Not Available Claritin- D 24 Hour 10 mg-240 mg tablet,ex tended release 1 po qD 10/27 completed Claritin -D 24 Hour Oral Tablet Sustaine d Release 24 hr 10-240 mg;Recor ded Status: Recorded on: 08/14/20 08 10:02PM; User: emily Not Available Not Available Not Available tamsulosi n 0.4 mg capsule Take 1 capsule every day by oral route. 02/23 completed Not Available Not Available Not Available amlodipin e 10 mg tablet TAKE 1 TABLET BY MOUTH EVERY DAY 2024 active Not Available Not Available Not Avai lable cephalexi n 500 mg capsule TAKE 1 CAPSULE THREE (3) TIMES DAILY FOR 7 DAYS 12/12 completed Not Available Not Available Not Available pantopraz ole 40 mg tablet,de layed release TAKE ONE TABLET BY MOUTH IN THE MORNING (DO NOT CRUSH, CHEW, OR DIVIDE, DO NOT START UNTIL NOV 25, 2022) 09/06 completed Not Available Not Available Not Available erythromy ar 5 mg/gram (0.5 %) eye ointment APPLY 1CM RIBBON INTO THE LOWER CONJUNCT IVAL SAC(S) IN THE AFFECTED EYE(S) THREE (3) TIMES PER DAY 09/06 completed Not Available Not Available Not Available cyanocoba law (vit B-12) 1,000 mcg/mL injection solution Inject 2 mL every month by intramus cular route. 02/23 completed Not Available Not Available Not Available oseltamiv ir 75 mg capsule 01/05 completed Not Available Not Available Not Available buspirone 10 mg tablet Take 1 tablet twice a day by oral route as needed. 02/23 completed Not Available Not Available Not Available Advair Diskus 250 mcg-50 mcg/dose powder for inhalatio n INHALE ONE (1) PUFF BY MOUTH TWICE DAILY active Not Available Not Available No t Available diclofena c sodium 75 mg tablet,de layed release Take 1 tablet twice a day by oral route. 02/23 completed Not Available Not Available Not Available furosemid e 20 mg tablet TAKE 1 TABLET BY MOUTH EVERY DAY NEEDED 01/16 completed Not Available Not Available Not Available clobetaso l 0.05 % topical ointment APPLY A THIN LAYER TO THE AFFECTED AREA(S) TOPICALL Y TWO (2) TIMES PER DAY active Not Available Not Available No t Available methylpre dnisolone 4 mg tablets in a dose pack TAKE DIRECTED PER PACKAGE INSTRUCT IONS 10/20 completed Not Available Not Available Not Available albuterol sulfate HFA 90 mcg/actua tion aerosol inhaler Inhale 2 puffs every 4 hours by inhalati on route. 2023 active Not Available Not Available Not Avai lable ketorolac 60 mg/2 mL intramusc ular solution Inject 2 mL every 6 hours by intramus cular route. 10/20 completed Not Available Not Available Not Available lisinopri l 40 mg tablet TAKE 1 TABLET EVERY DAY 01/16 completed Not Available Not Available Not Available cefdinir 300 mg capsule Take 1 capsule every 12 hours by oral route for 7 days. 12/03 completed Not Available Not Available Not Available spironola ctone 50 mg tablet TAKE ONE (1) TABLET BY MOUTH TWICE DAILY 09/06 completed Not Available Not Available Not Available Mucinex 600 mg tablet, extended release Take 1 tablet every 12 hours by oral route. 12/03 completed Not Available Not Available Not Available quetiapin e 50 mg tablet TAKE ONE (1) TABLET BY MOUTH EVERY NIGHT AT BEDTIME active Not Available Not Available No t Available Veramyst 27.5 mcg/actua tion nasal spray,jack pension Take as Directed 10/27 completed Veramyst 27.5mcg/ spray;Re corded Status: Recorded on: 08/14/20 08 10:03PM; User: emily Not Available Not Available Not Available Vitamin D3 50 mcg (2,000 unit) capsule Take 1 capsule every day by oral route. 07/20 completed Not Available Not Available Not Available AndroGel 20.25 mg/1.25 gram per pump act. (1.62 %) transderm al gel Apply 2.5 g every day by transder mal route. 02/23 completed Not Available Not Available Not Available melatonin 10 mg tablet Take 1 tablet every day by oral route for 30 days. 02/23 completed Not Available Not Available Not Available potassium chloride ER 20 mEq tablet,ex tended release Take 1 tablet every day by oral route for 7 days. 01/16 completed Not Available Not Available Not Available Entresto 24 mg-26 mg tablet TAKE ONE (1) TABLET BY MOUTH TWICE DAILY 09/06 completed Not Available Not Available Not Available Vitals Date Recorded Body height Body mass index (BMI) Body weight Body temperature Heart rate Oxygen saturation Respiratory rate Pain severity - 0-10 verbal numeric rating [Score] - Reported Systolic And Diastolic Provider Name and Address Organization Details Last Updated DateTime 5 182.88 cm 33.1 kg/m2 100714. 94 g 96.4 [degF] 62 /min 98 % 18 /min 0 140/90 mm[Hg] Virginia Henry [place] - [facility] 5 09:01:48 Date Recorded Body height Body mass index (BMI) Body weight Body temperature Heart rate Oxygen saturation Respiratory rate Pain severity - 0-10 verbal numeric rating [Score] - Reported Systolic And Diastolic Provider Name and Address Organization Details Last Updated DateTime 5 182.88 cm 33.1 kg/m2 607653. 54 g 97.5 [degF] 75 /min 97 % 18 /min 0 134/86 mm[Hg] Janna Manuel [place] - [facility] 5 14:55:08 Date Recorded Body height Body mass index (BMI) Body weight Heart rate Oxygen saturation Respiratory rate Pain severity - 0-10 verbal numeric rating [Score] - Reported Body temperature Systolic And Diastolic Provider Name and Address Organization Details Last Updated DateTime 5 182.88 cm 33.2 kg/m2 939725. 13 g 75 /min 98 % 18 /min 0 98.1 [degF] 160/100 mm[Hg] Virginia NIETO - [facility] 5 16:34:32 Date Recorded Body height Body mass index (BMI) Body weight Heart rate Oxygen saturation Respiratory rate Pain severity - 0-10 verbal numeric rating [Score] - Reported Body temperature Systolic And Diastolic Systolic And Diastolic Provider Name and Address Organization Details Last Updated DateTime 5 182.88 cm 33.1 kg/m2 698511. 54 g 64 /min 99 % 18 /min 0 97.3 [degF] 140/90 mm[Hg] 136/86 mm[Hg] Virginia NIETO - [facility] 5 14:38:08 Date Recorded Body height Body temperature Heart rate Oxygen saturation Respiratory rate Pain severity - 0-10 verbal numeric rating [Score] - Reported Provider Name and Address Organization Details Last Updated DateTime 4 182.88 cm 96.3 [degF] 81 /min 97 % 18 /min 0 Virginia NIETO [facility] 4 09:21:36 Social History Question Answer Notes LastModified by Organizat ion Details LastModified Time Tobacco Smoking Status Never [facility]2018 14:43:12 Do You Have An Advance Directive? No Information not available 10/27/2018 Are You Blind Or Do You Have Difficulty Seeing? No [email or web address] Information not available 01/24/2021 What Is Your Level Of Caffeine Consumption? Moderate Information not available 10/27/2018 How Much Tobacco Do You Chew? None Information not available 10/27/2018 Are You Deaf Or Do You Have Serious Difficulty Hearing? No Information not available 01/24/2021 What Type Of Diet Are You Following? REGULAR [email or web address] Information not available 02/23/2021 Which Illicit Or Recreational Drugs Have You Used? None Information not available 10/27/2018 Hard Of Hearing Or Deaf In One Or Both Ears? No Information not available 10/27/2018 Legally Blind In One Or Both Eyes? No Information no t available 10/27/2018 Live Alone Or With Others? With Others Information not available 10/27/2018 What Was The Date Of Your Most Recent Tobacco Screening? 09/13/2025 [email or web address] Information not available 09/13/2025 How Many Children Do You Have? 1 [email or web address] Information not available 02/23/2021 What Is Your Relationship Status? Information not available 10/27/2018 General Stress Level Medium Information not available 10/27/2018 Do You Have Difficulty Walking Or Climbing Stairs? No [email or web address] Information not available 02/23/2021 Sex: Male Functional Status Question Answer Note LastModified by Organizat ion Details LastModified Time What is your level of alcohol consumption? None Information not available 10/27/2018 Are you currently employed? Yes Information not available 10/27/2018 Are you able to walk independently without assistance or assistive devices? YESWOREST [email or web address] Information not available 02/23/2021 Do you have difficulty doing errands alone? No [email or web address] Information not available 02/23/2021 Are you able to care for yourself independently? Yes Information not available 10/27/2018 What is your occupation? [employer] work Information not available 10/27/2018 Do you have difficulty dressing, bathing, grooming, or toileting? No [email or web address] Information not available 02/23/2021 What is your exercise level? None Information not available 10/27/2018 Mental Status Question Answer Note LastModified by Organization D etails LastModified Time Do you have difficulty concentrating, remembering or making decisions? No [email or web address] Information no t available 02/23/2021 Family History Relationship Description Onset Age of this Age Resolved Age Notes LastModified by Organization Details LastModified Time Mother Family history of malignant neoplasm 71 colon Not available 2017 14:43:04 Father Family history of malignant neoplasm 57 eye and then bones Not available 10/27/2018 14:43:04 Medical History Condition Response Hypertension Y Immunizations Vaccine Type Date Status Note Provider Nam e and Address Organization Details Recorded Time zoster live 6 completed Not Available [facility] 09/13/2025 14:20:39 Influenza, split virus, trivalent, PF 6 completed Not Available [facility] 09/13/2025 14:20:39 Influenza, high-dose, quadrivalent , PF 3 cancelled patient objection Candice george MD [facility] [address], [place], [address], [place] - [facility] 09/05/2023 11:51:10 Past Encounters Encounter ID Performer Location Encounter Start Date Encounter Closed Date Diagnosis/Indication Diagnosis SNOMED-CT Code Diagnosis ICD10 Code Diagnosis IMO Codes Diagnosis Note [id number] [facility] [address] [place] [address] 2006 00:00:00 [id number] [facility] [address] [place] [address] 01/01/2008 00:00:00 [id number] Candice tejada MD [address] [address] 10/27/2018 14:25:08 10/27/2018 15:20:39 Body mass index 30+ - obesity 501102563 Z68.39 Screening for malignant neoplasm of prostate 583537767 Z12.5 Abdominal pain 63609480 R10.9 Long-term drug therapy 102673284 Z79.899 Hyperlipid emia screening 489487239 Z13.220 Prostatitis 9341331 N41. 9 [id number] Candice tejada MD [address] [address] 11/12/2018 09:08:40 11/12/2018 10:00:22 Body mass index 30+ - obesity 796230156 Z68.39 Abdominal pain 79996024 R10.9 Candidiasis of skin 4988 3006 B37.2 Essential hypertension 76536384 I10 Renewal of prescription 956103894 Z76.0 Osteoarthritis 349501219 M19.90 [id number] Candice tejada MD [address] [address] 01/05/2020 10:55:16 01/05/2020 12:23:06 Vitamin D deficiency 55812755 E55.9 Disorder o f vitamin B12 869699163 E53.8 Screening for malignant neoplasm of prostate 372542062 Z12.5 Dizziness 001007848 R42 Acute bact erial sinusitis 14394414 J01.90 Hypertensive disorder 38 864682 I10 Bacterial pneumonia 5308 4003 J15.9 [id number] Candice tejada MD [address] [address] 01/08/2020 14:46:14 01/08/2020 16:22:25 Hypertensive disorder 36194216 I10 Vitamin D deficiency 347 46040 E55.9 Disorder o f vitamin B12 491946411 E53.8 Generalize d anxiety disorder 36292998 F41.1 Dyspnea 160781362 R06.00 Fatigue 92953203 R53.83 [id number] Candice tejada MD [address] [address] 03/03/2020 12:51:14 03/03/2020 13:49:48 Dyspnea 491980198 R06.00 Generalize d anxiety disorder 50856254 F41.1 Headache 85245294 R51 [id number] Stormy Hagan PA-C [address] [address] 06/03/2020 13:07:24 06/03/2020 13:42:31 Increased frequency of urination 568807186 R35.0 Microscopic hematuria 19 0253040 R31.21 Difficulty sleeping 3013 08706 Z72.532 [id number] Candice tejada MD [address] [address] 08/22/2020 16:14:56 08/22/2020 17:02:09 Allergic rhinitis 82371329 J30.9 Disorder o f vitamin B12 708861634 E53.8 [id number] Candice tejada MD [address] [address] 09/12/2020 13:20:05 09/12/2020 14:50:44 Chronic sinusitis 07257810 J32.9 Dyspnea on exertion 6084 5006 R06.09 Persistent insomnia 1919 76309 G47.09 Generalize d anxiety disorder 55783190 F41.1 [id number] Candice tejada MD [address] [address] 10/17/2020 14:40:15 10/17/2020 15:44:56 Cough 50888227 R05 Vitamin D deficiency 347 07977 E55.9 Disorder o f vitamin B12 241484344 E53.8 Fatigue 16394041 R53.83 Chronic ki dney disease stage 3 163093934 N18.30 Testostero ne level below reference range 965795308 R79.89 [id number] Candice tejada MD [address] [address] 10/21/2020 10:22:15 10/21/2020 10:36:05 Cobalamin deficiency 003921491 E53.8 [id number] Candice tejada MD [address] [address] 01/24/2021 14:53:22 01/24/2021 17:02:20 Chronic neck pain 5253594139 107 M54.2 Chronic he adache disorder 801846748 G44.89 Long-term drug therapy 147151162 Z79.722 [id number] Stormy Hagan PA-C [address] [address] 02/23/2021 10:04:05 02/23/2021 11:00:06 Body mass index 30+ - obesity 139345893 Z68.34 Hypertensive disorder 38 794850 I10 [id number] Candice tejada MD [address] [address] 05/24/2021 13:36:43 05/24/2021 14:45:32 Viral screening 575086785 Z11.52 Dyspnea on exertion 6084 5006 R06.09 Headache 52601451 R51.9 Allergic rhinitis 437745 04 J30.9 Benign ess ential hypertension 1159529 I10 Lumbar radiculopathy 128 222074 M54.16 [id number] Candice tejada MD [facility] [address] [address] 06/01/2021 08:51:53 06/01/2021 09:38:14 Hypokalemia 65027031 E87.6 Obstructiv e sleep apnea syndrome 22226290 G47.33 pt has been having headaches and sob intermitte ntly [id number] Candice tejada MD [address] [address] 06/19/2021 15:59:48 06/21/2021 12:07:58 Dyspnea on exertion 31438294 R06.09 pt is taking lasix every other day, he denies any sob in the last 2 weeks. He declined a sleep study, a referral was sent and he refused to schedule. [id number] Candice tejada MD [place] [address] [address] 01/16/2022 12:51:56 01/16/2022 13:48:35 Hypertensive disorder 23220158 I10 Congestive heart failure 36198094 I50.9 Dyspnea 402891977 R06.00 Pre-surger y evaluation 281840230 Z01.423 [id number] Candice tejada MD [place] [address] [address] 10/16/2022 09:58:32 10/16/2022 10:43:09 Lichen simplex chronicus 13774683 L28.0 Atopic dermatitis 078449 01 L20.9 [id number] Candice tejada MD [address] [address] 09/05/2023 08:34:19 09/05/2023 10:24:14 Influenza vaccine needed 4948466977 106 Z23 Ingrowing nail of toe of left foot 0648739257 2759196 L60.0 Keep wound area clean and dry. Use triple antibiotic ointment on it twice a day. Come back if any worsening symptoms at all such as increasing pain fever redness or swelling. [id number] Candice tejada MD [address] [address] 11/18/2023 12:57:45 11/18/2023 14:47:12 Cough 39219078 R05.9 Viral screening 78498927 4 Z11.52 Acute bact erial sinusitis 39413921 J01.90 Hypertensive disorder 38 255675 I10 [id number] Candice tejada MD [address] [address] 12/12/2023 10:19:10 12/12/2023 12:34:02 Nasal congestion 29759619 R09.81 Viral screening 67448232 4 Z11.52 Acute bact erial sinusitis 25098989 J01.90 [id number] Candice tejada MD [address] [address] 03/16/2024 09:21:54 03/16/2024 10:39:57 Body mass index 30+ - obesity 017305508 Z68.35 Obesity 954892072 E66.9 Pain of le ft hip joint 1932619119 68585 M25.552 Cellulitis of toe 623282 04 L03.032 Osteoarthritis of hip 23 1159050 M16.9 [id number] Candice tejada MD [address] [address] 10/20/2024 09:14:05 10/20/2024 09:46:35 Expiratory wheezing 0086310 R06.2 Acute bact erial bronchitis 145926354 J20.9 [id number] Candice tejada MD [address] [address] 12/03/2024 08:56:35 12/03/2024 10:05:48 Candidal balanitis 41027883 B37.42 [id number] Stormy Hagan PA-C [facility] [address] [place] [address] 03/31/2025 14:52:14 03/31/2025 15:18:50 Hordeolum externum of upper eyelid of left eye 2776780005 21990 H00.187 6242491 [id number] Candice tejada MD [facility] [address] [place] [address] 09/06/2025 16:30:02 09/06/2025 16:56:48 Paresthesia of hand 364810291 R20.0 R20.2 244466 Hypertensive disorder 38 311188 I10 5955588 [id number] Candice tejada MD [facility] [address] [place] [address] 09/13/2025 14:20:07 09/13/2025 14:47:57 Hypertensive disorder 01827312 I10 continue current amlodipine and carvedilol as prescribed and lower salt and caffeine intake Health Concerns Section Related Observation LastModified by Organization Detai ls LastModified Time None Recorded Concern Status LastModified by Organization Details LastModified Time None Recorded Advance Directives Directive N: Payers Insurance Date Sequence Insurance Name Policy Number Policy Dexter Covered Member ID Dexter Member ID Guarantor Name 09/28/2025 1 [place]MEDIC[place]ACEMENT HMO[place] [id number] Paul Conner Jayro [id number] Paul A Jayro 10/20/2024 2 [place] Paul A Jayro [id number] Paul A Jayro 10/20/2024 [place] [facility] (MEDICARE) Paul Dalila Jayro [id number] Paul Dalila Jayro 10/20/2024 [place] [facility] (MEDICAID) Paul A Jayro [id number] Paul A Jayro 10/20/2024 2 [employer] [place]ICA[place] Paul A Jayro [id number] Paul A Jayro 10/20/2024 1 [employer] (MEDICARE REPLACEMENT/A DVANTAGE - HMO) [id number] Paul Saucedo [id number] Paul Saucedo 10/20/2024 1 [employer] (MEDICARE REPLACEMENT/A DVANTAGE - PPO) [id number] Paul Saucedo [id number] Paul Saucedo 12/03/2024 1 [employer] (MEDICARE REPLACEMENT/A DVANTAGE - PPO) [id number] Paul Saucedo [id number] Paul Saucedo 10/20/2024 1 [employer] (HMO) [id number] Paul Saucedo [id number] Paul Saucedo 10/20/2024 2 [place] Paul Saucedo [id number] Paul Saucedo Notes Date Note Type Note Provider Name and Address Organization Details Recorded Time 10/20/2024 text/html Mr. Martinez is here with 3 weeks of cough and congestion and sore throat and mild dyspnea. He says that when he exerts himself he coughs a lot and feels like he can not do as much has he has done in the past. Candice barillas MD [address], [place], [address], [employer] - [facility] 10/20/2024 09:40:28 12/03/2024 text/html Mr. Saucedo is a 68 yo man who has been having penile shaft irritation, with redness and occasionally some swelling. Candice barillas MD [address], [place], [address], [place] - [facility] 12/03/2024 11:42:12 03/31/2025 text/html ROS as noted in the HPI 69 yo male with L upper eyelid swelling and redness. No drainage. It is sore to touch and feels like there is something in his eye. Stormy Hagan PA-C [address], [place], [address], [facility] - [facility] 03/31/2025 15:16:23 09/06/2025 text/html Emergency Depart ment Follow-Up RecordReported by Patient Mr. Saucedo is a 69 yo male with left thumb, index finger and middle finger numbness. He says that has been going on for about 3 weeks. Its gotten worse over the last several days. He is also complaining of some perioral numbness and tingling. He denies any left hand weakness. He says that he has not had any decrease in ability to enunciate his words or any change in his swallowing habits. He was seen in the emergency room and they did a CT scan of his head which showed no acute abnormality. He also had blood work which showed a decrease in his GFR and creatinine and also a decrease in the platelet level. We can recheck those today. Candice barillas MD [address], [place], [address], [facility] - [facility] 09/06/2025 16:56:28 09/13/2025 text/html Mr. Saucedo is a 69 yo male with essential hypertension, He is taking carvedilol and amlodipine as directed and is feeling well today. Candice barillas MD [address], [place], [address], [facility] - [facility] 09/13/2025 14:43:52
--- OUTSIDE RECORDS SUMMARY | 2025-09-30 12:03 | XMS_ITS | Clinical Summary ---
Author Organization [facility] Address [address] [place] [address] Care Team Providers Care Clerk Analyst Name Role Phone Fausto Gary MD Unavailable [phone] Candice Nguyen MD Primary Care Provider [phone] Allergies Active Allergy Reactions Criticality Noted Date Comments Penicillins Other - please docum ent in the comment field Low 07/28/2021 Medications carvedilol (Coreg) 12.5 MG tablet TAKE ONE (1) TABLET BY MOUTH TWICE DAILY 01/12/2021 Active Entresto 24-26 MG tablet Take 1 tablet by mouth 2 (two) times a day. 07/03/2021 Active spironolactone (Aldactone) 50 MG tablet Take 50 mg by mouth 2 (two) times a day. 07/03/2021 Active furosemide (Lasix) 20 MG tablet Take 20 mg by mouth 1 (one) time each day if needed. 05/26/2021 Active potassium chloride CR (Klor-Con) 10 MEQ ER tablet Take 10 mEq by mouth 1 (one) time each day. 06/01/2021 Active QUEtiapine (SEROquel) 50 MG tablet Take 50 mg by mouth every night. 07/24/2021 Active Active Problems Problem Noted Date Diagnosed Date Obesity (BMI 30-39.9) 09/05/2022 Pulmonary hypertension 09/05/2022 Severe aortic insufficiency 07/28/2021 Congestive heart failure (CHF) 07/28/2021 Hypertension 07/28/2021 Resolved Problems Problem Noted Date Diagnosed Date Resolved Date Obesity (BMI 30.0-34.9) 07/09/202208/12 Left ventricular dilatation 07/28/2021 08/01/2025 Immunizations Immunization Administration Dates Next Due Influenza, seasonal, injectable, preservative fr ee 08/11/2016 Zoster, live 08/11/2016 Family History Medical History Relation Name Comments Cancer Father Cancer Mother Relation Name Status Comments Father Mother Social History Tobacco Use Types Packs/Day Years Used Date Smoking Tobacco: Never Smokeless Tobacco: Never Tobacco Cessation:Counseling Given: Not Answered Alcohol Use Standard Drinks/Week Comments Not Currently 0 (1 standard drink = 0.6 oz pur e alcohol) Sex and Gender Information Value Date Recorded Sex Assigned at Not on file Legal Sex Male 4:55 PM EDT Gender Identity Not on file Sexual Orientation Not on file Last Filed Vital Signs Vital Sign Reading Time Taken Comments Blood Pressure 172/68 07/11/2022 11:57 AM EDT Pulse 73 07/11/2022 11:57 AM EDT Temperature - - Respiratory Rate - - Oxygen Saturation 96% 07/11/2022 11:57 AM EDT Inhaled Oxygen Concentration - - Weight 110 kg (242 lb) 07/11/2022 11:57 AM EDT Height 167.6 cm (5' 6 ) 07/11/2022 11:57 AM EDT Body Mass Index 39.06 07/11/2022 11:57 AM EDT Plan of Treatment Health Maintenance Due Date Last Done Comments [facility]-Depression Screening 1955 [facility]-Infant/Child/Adol SDOH Screenings 1955 [facility]- SDOH Screenings 1971 [facility]-Adult SDOH Screenings 1971 [facility]-DTaP,Tdap,and Td Vaccine s (1 - Tdap) 1972 CT Colonography 1998 Colonoscopy 1998 FIT-DNA 1998 FIT 1998 FOBT 1998 Sigmoidoscopy 1998 [facility]-Colorectal Cancer Screening 1998 [facility]-Pneumococcal Vaccine: 50 + Years (1 of 1 - PCV) 2003 [facility]-Zoster Vaccines (2 of 3) 10/06/2016 08/11/2016 SED-GSEZX-90 Vaccine (1 - 20 25- season) 2025 [facility]-Influenza Vaccine (#1) 2025 08/11/2016 [facility]-RSV Vaccine: 60+ Years o r (1 - 1-dose 75+ series) 2028 HPV Vaccines Aged Out No longer eligi ble based on patient's age to complete this topic [facility]-HIB Vaccines Aged Out No longer e ligible based on patient's age to complete this topic [facility]-Hepatitis A Vaccines Aged Out No longer eligible based on patient's age to complete this topic [facility]-IPV Vaccines Aged Out No longer e ligible based on patient's age to complete this topic [facility]-Rotavirus Vaccines Aged Out No lo nger eligible based on patient's age to complete this topic Insurance [employer] MEDICARE Care Teams Clerk Analyst Relationship Specialty [place] [id number] [address] PCP - General 08/02/21 Fausto Gary MD [address] [place] [address] Referring Physician 07/28/21
--- OUTSIDE RECORDS SUMMARY | 2025-09-30 12:04 | XMS_ITS | Continuity of Care Document ---
Author Organization [place] - [facility], To [facility] Address [address] [facility] [address] [place] [address] Assessment Encounter Date Assessment Date Assessment LastModified by Organization Details LastModified Time 09/06/2025 09/06/2025 -Medications were reviewed and any necessary updates and renewals were made, patient instructed to complete as prescribed. -The potential side effects of medications were discussed. -Counseling was done on care goals and ways to prevent future hospitalizatio ns. -Further treatment per orders listed below. [email or web address] Not available 09/06/2025 16:34:39 Plan of Treatment Reminders Order Date Submit Date Provider Last Modified By Organization Details Last Modified Time Details Appointments History and Physical 20 2024 10:00A M Corby melendez MD Not available Not available Not available Lab CBC w/ auto diff 2024 025 GRACE [facility], [address], [address], [place], [address], 09/07/2025 04:10:59 CMP, serum or plasma 2024 025 GRACE [facility], [address], [place], [place], [address], 09/07/2025 04:11:00 HbA1c (hemoglob in A1c), blood 2024 025 GRACE [facility], [address], [place] [address], [place], [address], 09/07/2025 04:11:00 magnesium , serum or plasma 102024 GRACE [facility], [address], [place] [address], [place], [address], 09/07/2025 04:11:01 Referral None recorded. Procedures None recorded. Surgeries None recorded. Imaging electromy ogram + nerve conductio n study 2024 GRACE [facility], [address] [facility] , [place], [address], 09/14/2025 15:13:31 MRI, brain, w/o contrast 2024 GRACE Dinh (Centralized Scheduling), [address] [place] [address] , [place], [address], 09/15/2025 12:55:51 Medication Orders amlodipin e 10 mg tablet 2024 GRACE [facility], [address], [place], [address], 09/06/2025 16:52:02 Patient TargetsNo targets recorded. Patient InstructionsNo instructions recorded. Reason for Referral None Reported. Results Created Date Observation Date Name Description Value Unit Range Abnormal Flag Note LastModifiedBy Organization Detail LastModifiedTime 09/06/2009/07/2025 CBC WITH DIFFE RENTI AL/PL ATELE T WBC 8.8 x10e3 /uL 3.4-10 .8 normal Not Available [facility] ([facility]) [address] [place], [address], 09/07/2025 04:10:59 09/06/2009/07/2025 CBC WITH DIFFE RENTI AL/PL ATELE T RBC 4.87 x10e6 /uL 4.14-5 .80 normal Not Available [facility] ([facility]) [address] [place], [address], 09/07/2025 04:10:59 09/06/20 25 09/07/2025 CBC WITH DIFFE RENTI AL/PL ATELE T hemoglobin 15.7 g/dL 13.0-1 7.7 normal Not Available [facility] ([facility]) [address] [place], [address], 09/07/2025 04:10:59 09/06/2009/07/2025 CBC WITH DIFFE RENTI AL/PL ATELE T hematocrit 46.6 % 37.5-5 1.0 normal Not Available [facility] ([facility]) [address] [place], [address], 09/07/2025 04:10:59 09/06/2009/07/2025 CBC WITH DIFFE RENTI AL/PL ATELE T MCV 96 fL 79-97 normal Not Available [facility] ([facility]) [address] [facility], [place], [address], 09/07/2025 04:10:59 09/06/2009/07/2025 CBC WITH DIFFE RENTI AL/PL ATELE T MCH 32.2 pg 26.6-3 3.0 normal Not Available [facility] ([facility]) [address] [place], [address], 09/07/2025 04:10:59 09/06/2009/07/2025 CBC WITH DIFFE RENTI AL/PL ATELE T MCHC 33.7 g/dL 31.5-3 5.7 normal Not Available [facility] ([facility]) [address] [place], [address], 09/07/2025 04:10:59 09/06/2009/07/2025 CBC WITH DIFFE RENTI AL/PL ATELE T RDW 12.1 % 11.6-1 5.4 Not Available [facility] ([facility]) [address] [place], [address], 09/07/2025 04:10:59 09/06/2009/07/2025 CBC WITH DIFFE RENTI AL/PL ATELE T platelets 153 x10e3 /uL 150-45 0 normal Not Available [facility] ([facility]) [address] [facility], [place], [address], 09/07/2025 04:10:59 09/06/20 25 09/07/2025 CBC WITH DIFFE RENTI AL/PL ATELE T neutrophils 51 % not estab. normal Not Available [facility] ([facility]) [address] [facility], [place], [address], 09/07/2025 04:10:59 09/06/2009/07/2025 CBC WITH DIFFE RENTI AL/PL ATELE T lymphs 26 % not estab. normal Not Available [facility] ([facility]) [address] [facility], [place], [address], 09/07/2025 04:10:59 09/06/2009/07/2025 CBC WITH DIFFE RENTI AL/PL ATELE T monocytes 13 % not estab. normal Not Available [facility] ([facility]) [address] [facility], [place], [address], 09/07/2025 04:10:59 09/06/2009/07/2025 CBC WITH DIFFE RENTI AL/PL ATELE T eos 9 % not estab. normal Not Available [facility] ([facility]) [address] [place], [address], 09/07/2025 04:10:59 09/06/2009/07/2025 CBC WITH DIFFE RENTI AL/PL ATELE T basos 1 % not estab. normal Not Available [facility] ([facility]) [address] [place], [address], 09/07/2025 04:10:59 09/06/20 25 09/07/2025 CBC WITH DIFFE RENTI AL/PL ATELE T immature cells METER TESTER Not Available [facility] ([facility]) [address] [place], [address], 09/07/2025 04:10:59 09/06/20 25 09/07/2025 CBC WITH DIFFE RENTI AL/PL ATELE T neutrophils (absolute) 4.5 x10e3 /uL 1.4-7. 0 normal Not Available [facility] ([facility]) [address] [place], [address], 09/07/2025 04:10:59 09/06/2009/07/2025 CBC WITH DIFFE RENTI AL/PL ATELE T lymphs (absolute) 2.3 x10e3 /uL 0.7-3. 1 normal Not Available [facility] ([facility]) [address] [place], [address], 09/07/2025 04:10:59 09/06/20 25 09/07/2025 CBC WITH DIFFE RENTI AL/PL ATELE T monocytes(ab solute) 1.2 x10e3 /uL 0.1-0. 9 above high normal Not Available [facility] ([facility]) [address] [place], [address], 09/07/2025 04:10:59 09/06/20 25 09/07/2025 CBC WITH DIFFE RENTI AL/PL ATELE T eos (absolute) 0.8 x10e3 /uL 0.0-0. 4 above high normal Not Available [facility] ([facility]) [address] [place], [address], 09/07/2025 04:10:59 09/06/20 25 09/07/2025 CBC WITH DIFFE RENTI AL/PL ATELE T baso (absolute) 0.1 x10e3 /uL 0.0-0. 2 normal Not Available [facility] ([facility]) [address] [place], [address], 09/07/2025 04:10:59 09/06/20 25 09/07/2025 CBC WITH DIFFE RENTI AL/PL ATELE T immature granulocytes 0 % not estab. Not Available [facility] ([facility]) [address] [facility], [place], [address], 09/07/2025 04:10:59 09/06/20 25 09/07/2025 CBC WITH DIFFE RENTI AL/PL ATELE T immature grans (abs) 0.0 x10e3 /uL 0.0-0. 1 Not Available [facility] ([facility]) [address] [facility], [place], [address], 09/07/2025 04:10:59 09/06/2009/07/2025 CBC WITH DIFFE RENTI AL/PL ATELE T NRBC METER TESTER Not Available [facility] ([facility]) [address] [facility], [place], [address], 09/07/2025 04:10:59 09/06/2009/07/2025 CBC WITH DIFFE RENTI AL/PL ATELE T hematology comments: METER TESTER Not Available [facility] ([facility]) [address] [facility], [place], [address], 09/07/2025 04:10:59 09/06/2009/07/2025 COMP. METAB OLIC PANEL (14) glucose 87 mg/dL 70-99 normal Not Available [facility] ([facility]) [address] [facility], [place], [address], 09/07/2025 04:10:59 09/06/2009/07/2025 COMP. METAB OLIC PANEL (14) BUN 25 mg/dL 8-27 normal Not Available [facility] ([facility]) [address] [place], [address], 09/07/2025 04:10:59 09/06/20 25 09/07/2025 COMP. METAB OLIC PANEL (14) creatinine 1.47 mg/dL 0.76-1 .27 above high normal Not Available [facility] ([facility]) [address] [facility], [place], [address], 09/07/2025 04:10:59 09/06/20 25 09/07/2025 COMP. METAB OLIC PANEL (14) eGFR 51 mL/mi n/1.7 3 >59 below low normal Not Available [facility] ([facility]) [address] [facility], [place], [address], 09/07/2025 04:10:59 09/06/20 25 09/07/2025 COMP. METAB OLIC PANEL (14) BUN/creatini ne ratio 17 10-24 normal Not Available [facility] ([facility]) [address] [facility], [place], [address], 09/07/2025 04:10:59 09/06/2009/07/2025 COMP. METAB OLIC PANEL (14) sodium 142 mmol/ L 134-14 4 normal Not Available [facility] ([facility]) [address] [facility], [place], [address], 09/07/2025 04:10:59 09/06/2009/07/2025 COMP. METAB OLIC PANEL (14) potassium 4.2 mmol/ L 3.5-5. 2 normal Not Available [facility] ([facility]) [address] [facility], [place], [address], 09/07/2025 04:10:59 09/06/20 25 09/07/2025 COMP. METAB OLIC PANEL (14) chloride 105 mmol/ L 96-106 normal Not Available [facility] ([facility]) [address] [place], [address], 09/07/2025 04:10:59 09/06/2009/07/2025 COMP. METAB OLIC PANEL (14) carbon dioxide, total 23 mmol/ L 20-29 normal Not Available [facility] ([facility]) [address] [place], [address], 09/07/2025 04:10:59 09/06/20 25 09/07/2025 COMP. METAB OLIC PANEL (14) calcium 9.0 mg/dL 8.6-10 .2 normal Not Available [facility] ([facility]) [address] [facility], [place], [address], 09/07/2025 04:10:59 09/06/20 25 09/07/2025 COMP. METAB OLIC PANEL (14) protein, total 6.6 g/dL 6.0-8. 5 normal Not Available [facility] ([facility]) [address] [facility] [place], [address], 09/07/2025 04:10:59 09/06/20 25 09/07/2025 COMP. METAB OLIC PANEL (14) albumin 4.2 g/dL 3.8-4. 8 normal Not Available [facility] ([facility]) [address] [facility], [place], [address], 09/07/2025 04:10:59 09/06/2009/07/2025 COMP. METAB OLIC PANEL (14) globulin, total 2.4 g/dL 1.5-4. 5 Not Available [facility] ([facility]) [address] [facility], [place], [address], 09/07/2025 04:10:59 09/06/20 25 09/07/2025 COMP. METAB OLIC PANEL (14) bilirubin, total 0.6 mg/dL 0.0-1. 2 normal Not Available [facility] ([facility]) [address] [facility] [place], [address], 09/07/2025 04:10:59 09/06/2009/07/2025 COMP. METAB OLIC PANEL (14) alkaline phosphatase 82 IU/L 47-123 normal Not Available [facility] ([facility]) [address] [facility], [place], [address], 09/07/2025 04:10:59 09/06/20 25 09/07/2025 COMP. METAB OLIC PANEL (14) AST (SGOT) 28 IU/L 0-40 normal Not Available [facility] ([facility]) [address] [place], [address], 09/07/2025 04:10:59 09/06/20 25 09/07/2025 COMP. METAB OLIC PANEL (14) ALT (SGPT) 21 IU/L 0-44 normal Not Available [facility] ([facility]) [address] [place], [address], 09/07/2025 04:10:59 09/06/20 25 09/07/2025 HEMOG LOBIN A1C hemoglobin A1C 5.5 % 4.8-5. 6 normal Predi abete s: 5.7 - 6.4 Diabe eunice: >6.4 Glyce jhon contr ol for adult s with diabe eunice: <7.0 Not Available [facility] ([facility]) [address] [place], [address], 09/07/2025 04:11:00 09/06/20 25 09/07/2025 MAGNE SIUM magnesium 2.0 mg/dL 1.6-2. 3 normal Not Available [facility] ([facility]) [address] [place], [address], 09/07/2025 04:11:01 09/14/20 25 09/14/2025 elect romyo gram + nerve condu ction study No observ ation record ed. [email or web address] Trevor Hannah [facility] [address] [place], [place], [address], 09/16/2025 11:29:21 09/15/20 25 09/15/2025 MRI, brain , w/o contr ast [facility] Name: JOSE GREGORY,NBA GERSON A [address] Phys: Katy [place] [address] : 1955 Age: 69 Sex: M Acct: [id number] Loc: G.MRI PHONE #: [phone] Exam Date: 2024 Status : REG CLI FAX #: Rad# [id number] Unit# [id number] Admit Date: 2024 EXAMS: CPT CODE: [id number] [id number] MRI BRAIN W/O CONTRA ST 10265 MRI brain HISTOR Y: Headac hes COMPAR SANDRA: 2024 CT head FINDIN GS: No acute or subacu te infarc ts apprec iated on diffus ion/AD C sequen bogdan. Mild atroph y and very mild chroni c small vessel ischem ic change in right sims radiat a and centru m semiov sameer white matter and around the weather clerk ior horns of latera l ventri cles [...] ed and signed by: Freida VELASCO CC: Corby george MD Dictat ed Date/T gordo: 2024 (1247) Techno logist : ARTI PARISI Transc ribed Date/T gordo: 2024 (1247) Transc riptio nist: [email or web address] Electr onic Signat ure Date/T gordo: 2024 (1247) Printe d Date/T ogrdo: 2024 (1254) BATCH NO: N/A PAGE 1 Signed Report CC'ed Logic: Orderi ng Provid er: TINGUE -POCZA BRITTON CORBY Attend ing Provid er: TINGUE -POCZA BRITTON CORBY Referr ing Provid er: TINGUE -POCZA BRITTON CORBY Consul ting Provid er: TINGUE -POCZA BRITTON CORBY [email or web address], [place], [address], 09/16/2025 11:29:21 Result Notes None recorded. Problems Name Problem SNOMED Code Status Onset Date Resolution Date Notes Provider Name and Address Organization Details Recorded Time Family history of cancer of colon 856115400 Active Pt's mother; Colonosc opy 12/2014 rpt 3yr Narciso Villalta RN [address] [facility], [place], [address] , [place] - [facility] 0 15:24:27 Suspecte d COVID-19 668735383 Completed 07/24/2021 Removal Reason: Problem added by user [email or web address] from the COVID-19 watch flag Luma Campos RN [address], [place], [address] , [place] - [facility] 1 09:46:17 Hyperten sive disorder 69607571 Active 2017 Narciso Villalta RN [address], [place], [address] , [place] - [facility] 0 15:24:27 Body mass index 30+ - obesity 095170451 Active 2017 Narciso Villalta RN [address], [place], [address] , [place] - [facility] 0 15:24:27 Chronic kidney disease stage 3 047862356 Active 2019 Corby tejada MD [address], [place], [address] , [place] - [facility] 0 15:25:10 Problem Notes None recorded. Procedures Surgical History Date Name Laterality Status Provider Name and Address Organization Details Recorded Time 09/06/20 25 Medication Reconcilliation completed Virginia Henry [place] - [facility] 09/06/2025 16:34:39 09/05/20 23 Excision of ingrown toenail completed Corby ahmadi MD [address], [place], [address], [place] - [facility] 09/05/2023 09:07:14 01/25/20 21 [...] Hg completed Sabrina Lane [place] - [facility] 03/03/2020 13:15:03 03/03/20 20 Systolic B/P greater than or equal to 140 mm [address] completed [address] [place] - [facility] 03/03/2020 13:15:01 01/08/20 20 [...] completed Narciso Villalta RN [address], [place], [address], [place] - [facility] 12/01/2018 09:39:30 Imaging Results None recorded. Procedure Notes None recorded. Medical Equipment None Reported. Allergies Allergen ID Allergen Name Allergen Category Reaction Reaction Severity Criticality Documentation Date Start Date Code Code System Note Provider Name and Address Organization Details Recorded Time 614459 Product containin g penicilli n (product) medicatio n Not available Not available Not available 10/27/2018 03948 8001 SNOMED Arti mckeon, [place] - [facility] 8 14:39:45 66713 penicilli n G potassium medicatio n rash Not available Not available 08/17/20162007 3 RxNorm React ion: Rash; Comme nt: penic illin G potas sium; Not Available [facility] 6 09:01:24 Medications Name Sig Start Date [...] Status: Recorded on: 08/14/20 08 10:03PM; User: [email or web address] Not Available Not Available Not Available Vitamin [...] Updated DateTime 5 182.88 cm 33.2 kg/m2 711696. 13 g 75 /min 98 % 18 /min 0 98.1 [degF] 160/100 mm[Hg] Virginia Henry [place] - [facility] 5 16:34:32 Social History Question Answer Notes LastModified by Organizat ion Details LastModified Time Tobacco Smoking Status Never Smoker Arti mckeon [place] - [facility] 10/27/2018 14:43:12 Do You Have An Advance Directive? No Information not available 10/27/2018 Are You Blind Or Do You Have Difficulty Seeing? No [email or web address] Information not available 01/24/2021 What Is Your [...] Of Your Most Recent Tobacco Screening? 09/13/2025 Information not available 09/13/2025 How Many Children [...] Time zoster live 6 completed Not Available [facility] 09/13/2025 14:20:39 Influenza, split virus, trivalent, PF 6 completed [facility] Available [facility] 09/13/2025 14:20:39 Influenza, high-dose, quadrivalent , PF 3 cancelled patient objection Corby george MD [facility] [address], [place], [address], [place] - [facility] 09/05/2023 11:51:10 Past Encounters Encounter ID Performer Location Encounter Start Date Encounter Closed Date Diagnosis/Indication Diagnosis SNOMED-CT Code Diagnosis ICD10 Code Diagnosis IMO Codes Diagnosis Note [id number] Corby tejada MD [facility] [address] [place] [address] 09/06/2025 16:30:02 09/06/2025 16:56:48 Paresthesia of hand 913700564 R20.0 R20.2 854748 Hypertensive disorder 38 122803 I10 8376871 Health Concerns Section Related Observation LastModified by Organization Detai ls LastModified Time None Recorded Concern Status LastModified by Organization Details LastModified Time None Recorded Payers Encounter Date Sequence Insurance Name Policy Number Policy Dexter Covered Member ID Dexter Member ID Guarantor Name 09/06/2025 1 [place]MEDICARE [place]PLACEMENT HMO) [id number] Paul Dial [id number] Paul Dial Notes Date Note Type Note Provider Name and Address Organization Details Recorded Time 09/06/2025 text/html Emergency Depart ment Follow-Up RecordReported by Patient Mr. Dial is a 69 yo male with left [...] platelet level. We can recheck those today. Corby barillas MD [address], [place], [address], [facility] - [facility] 09/06/2025 16:56:28
--- OUTSIDE RECORDS SUMMARY | 2025-09-30 12:04 | XMS_ITS | Continuity of Care Document ---
Author Organization [place] - [facility], To [facility] Address [address] [place] [address] Assessment Encounter Date Assessment Date Assessment LastModified by Organization Details LastModified Time 09/13/2025 09/13/2025 -Medications were reviewed and any [...] Not available Not available Not available Lab None recorded. Referral None recorded. Procedures None recorded. Surgeries None recorded. Imaging None recorded. Medication Orders None recorded. Patient TargetsNo targets recorded. Patient InstructionsNo instructions recorded. Reason for Referral None Reported. Results Created Date Observation Date Name Description Value Unit Range Abnormal Flag Note LastModifiedBy Organization Detail LastModifiedTime 09/06/2009/07/2025 CBC WITH DIFFE RENTI AL/PL ATELE T WBC 8.8 x10e3 /uL 3.4-10 .8 normal Not Available [facility] ([facility]) [address] [facility], [place], [address], 09/07/2025 04:10:59 09/06/2009/07/2025 CBC WITH DIFFE RENTI AL/PL ATELE T RBC 4.87 x10e6 /uL 4.14-5 .80 normal Not Available [facility] ([facility]) [address] [facility], [place], [address], 09/07/2025 04:10:59 09/06/2009/07/2025 CBC WITH DIFFE RENTI AL/PL ATELE T hemoglobin 15.7 g/dL 13.0-1 7.7 normal Not Available [facility] ([facility]) [address] [facility], [place], [address], 09/07/2025 04:10:59 09/06/2009/07/2025 CBC WITH DIFFE RENTI AL/PL ATELE T hematocrit 46.6 % 37.5-5 1.0 normal Not Available [facility] ([facility]) [address] [facility], [place], [address], 09/07/2025 04:10:59 09/06/2009/07/2025 CBC WITH DIFFE RENTI AL/PL ATELE T MCV 96 fL 79-97 normal Not Available [facility] ([facility]) [address] [place], [address], 09/07/2025 04:10:59 09/06/2009/07/2025 CBC WITH DIFFE RENTI AL/PL ATELE T MCH 32.2 pg 26.6-3 3.0 normal Not Available [facility] ([facility]) [address] [place], [address], 09/07/2025 04:10:59 09/06/2009/07/2025 CBC WITH DIFFE RENTI AL/PL ATELE T MCHC 33.7 g/dL 31.5-3 5.7 normal Not Available [facility] ([facility]) [address] [place], [address], 09/07/2025 04:10:59 09/06/2009/07/2025 CBC WITH DIFFE RENTI AL/PL ATELE T RDW 12.1 % 11.6-1 5.4 Not Available [facility] ([facility]) [address] [facility], [place], [address], 09/07/2025 04:10:59 09/06/2009/07/2025 CBC WITH DIFFE RENTI AL/PL ATELE T platelets 153 x10e3 /uL 150-45 0 normal Not Available [facility] ([facility]) [address] [facility], [place], [address], 09/07/2025 04:10:59 09/06/2009/07/2025 CBC WITH DIFFE RENTI AL/PL ATELE T neutrophils 51 % not estab. normal Not Available [facility] ([facility]) [address] [facility], [place], [address], 09/07/2025 04:10:59 09/06/2009/07/2025 CBC WITH DIFFE RENTI AL/PL ATELE T lymphs 26 % not estab. normal Not Available [facility] ([facility]) [address] [facility], [place], [address], 09/07/2025 04:10:59 09/06/2009/07/2025 CBC WITH DIFFE RENTI AL/PL ATELE T monocytes 13 % not estab. normal Not Available [facility] ([facility]) [address] [facility], [place], [address], 09/07/2025 04:10:59 09/06/2009/07/2025 CBC WITH DIFFE RENTI AL/PL ATELE T eos 9 % not estab. normal Not Available [facility] ([facility]) [address] [facility], [place], [address], 09/07/2025 04:10:59 09/06/2009/07/2025 CBC WITH DIFFE RENTI AL/PL ATELE T basos 1 % not estab. normal Not Available [facility] ([facility]) [address] [facility], [place], [address], 09/07/2025 04:10:59 09/06/20 25 09/07/2025 CBC WITH DIFFE RENTI AL/PL ATELE T immature cells TOBACCO CUTTER Not Available [facility] ([facility]) [address] [place], [address], 09/07/2025 04:10:59 09/06/20 25 09/07/2025 CBC WITH DIFFE RENTI AL/PL ATELE T neutrophils (absolute) 4.5 x10e3 /uL 1.4-7. 0 normal Not Available [facility] ([facility]) [address] [place], [address], 09/07/2025 04:10:59 09/06/20 25 09/07/2025 CBC WITH DIFFE RENTI AL/PL ATELE T lymphs (absolute) 2.3 x10e3 /uL 0.7-3. 1 normal Not Available [facility] ([facility]) [address] [place], [address], 09/07/2025 04:10:59 09/06/20 25 09/07/2025 CBC WITH DIFFE RENTI AL/PL ATELE T monocytes(ab solute) 1.2 x10e3 /uL 0.1-0. 9 above high normal Not Available [facility] ([facility]) [address] [place], [address], 09/07/2025 04:10:59 09/06/20 25 09/07/2025 CBC WITH DIFFE RENTI AL/PL ATELE T eos (absolute) 0.8 x10e3 /uL 0.0-0. 4 above high normal Not Available [facility] ([facility]) [address] [place], [address], 09/07/2025 04:10:59 09/06/20 25 09/07/2025 CBC WITH DIFFE RENTI AL/PL ATELE T baso (absolute) 0.1 x10e3 /uL 0.0-0. 2 normal Not Available [facility] ([facility]) [address] [facility], [place], [address], 09/07/2025 04:10:59 09/06/2009/07/2025 CBC WITH DIFFE RENTI AL/PL ATELE T immature granulocytes 0 % not estab. Not Available [facility] ([facility]) [address] [facility], [place], [address], 09/07/2025 04:10:59 09/06/2009/07/2025 CBC WITH DIFFE RENTI AL/PL ATELE T immature grans (abs) 0.0 x10e3 /uL 0.0-0. 1 Not Available [facility] ([facility]) [address] [facility], [place], [address], 09/07/2025 04:10:59 09/06/2009/07/2025 CBC WITH DIFFE RENTI AL/PL ATELE T NRBC TOBACCO CUTTER Not Available [facility] ([facility]) [address] [facility], [place], [address], 09/07/2025 04:10:59 09/06/2009/07/2025 CBC WITH DIFFE RENTI AL/PL ATELE T hematology comments: TOBACCO CUTTER Not Available [facility] ([facility]) [address] [facility], [place], [address], 09/07/2025 04:10:59 09/06/2009/07/2025 COMP. METAB OLIC PANEL (14) glucose 87 mg/dL 70-99 normal Not Available [facility] ([facility]) [address] [facility], [place], [address], 09/07/2025 04:10:59 09/06/2009/07/2025 COMP. METAB OLIC PANEL (14) BUN 25 mg/dL 8-27 normal Not Available [facility] ([facility]) [address] [facility], [place], [address], 09/07/2025 04:10:59 09/06/20 25 09/07/2025 COMP. METAB OLIC PANEL (14) creatinine 1.47 mg/dL 0.76-1 .27 above high normal Not Available [facility] ([facility]) [address] [facility], [place], [address], 09/07/2025 04:10:59 09/06/20 25 09/07/2025 COMP. METAB OLIC PANEL (14) eGFR 51 mL/mi n/1.7 3 >59 below low normal Not Available [facility] ([facility]) [address] [facility], [place], [address], 09/07/2025 04:10:59 09/06/20 25 09/07/2025 COMP. METAB OLIC PANEL (14) BUN/creatini ne ratio 17 10-24 normal Not Available [facility] ([facility]) [address] [facility], [place], [address], 09/07/2025 04:10:59 09/06/20 25 09/07/2025 COMP. METAB OLIC PANEL (14) sodium 142 mmol/ L 134-14 4 normal Not Available [facility] ([facility]) [address] [facility], [place], [address], 09/07/2025 04:10:59 09/06/20 25 09/07/2025 COMP. METAB OLIC PANEL (14) potassium 4.2 mmol/ L 3.5-5. 2 normal Not Available [facility] ([facility]) [address] [facility], [place], [address], 09/07/2025 04:10:59 09/06/2009/07/2025 COMP. METAB OLIC PANEL (14) chloride 105 mmol/ L 96-106 normal Not Available [facility] ([facility]) [address] [facility], [place], [address], 09/07/2025 04:10:59 09/06/20 25 09/07/2025 COMP. METAB OLIC PANEL (14) carbon dioxide, total 23 mmol/ L 20-29 normal Not Available [facility] ([facility]) [address] [place], [address], 09/07/2025 04:10:59 09/06/20 25 09/07/2025 COMP. METAB OLIC PANEL (14) calcium 9.0 mg/dL 8.6-10 .2 normal Not Available [facility] ([facility]) [address] [facility], [place], [address], 09/07/2025 04:10:59 09/06/2009/07/2025 COMP. METAB OLIC PANEL (14) protein, total 6.6 g/dL 6.0-8. 5 normal Not Available [facility] ([facility]) [address] [place], [address], 09/07/2025 04:10:59 09/06/2009/07/2025 COMP. METAB OLIC PANEL (14) albumin 4.2 g/dL 3.8-4. 8 normal Not Available [facility] ([facility]) [address] [place], [address], 09/07/2025 04:10:59 09/06/20 25 09/07/2025 COMP. METAB OLIC PANEL (14) globulin, total 2.4 g/dL 1.5-4. 5 Not Available [facility] ([facility]) [address] [place], [address], 09/07/2025 04:10:59 09/06/2009/07/2025 COMP. METAB OLIC PANEL (14) bilirubin, total 0.6 mg/dL 0.0-1. 2 normal Not Available [facility] ([facility]) [address] [place], [address], 09/07/2025 04:10:59 09/06/2009/07/2025 COMP. METAB OLIC PANEL (14) alkaline phosphatase 82 IU/L 47-123 normal Not Available [facility] ([facility]) [address] [place], [address], 09/07/2025 04:10:59 09/06/20 25 09/07/2025 COMP. METAB OLIC PANEL (14) AST (SGOT) 28 IU/L 0-40 normal Not Available [facility] ([facility]) [address] [place], [address], 09/07/2025 04:10:59 09/06/2009/07/2025 COMP. METAB OLIC PANEL (14) ALT (SGPT) 21 IU/L 0-44 normal Not Available [facility] ([facility]) [address] [place], [address], 09/07/2025 04:10:59 09/06/2009/07/2025 HEMOG LOBIN A1C hemoglobin A1C 5.5 % 4.8-5. 6 normal Predi abete s: 5.7 - 6.4 Diabe eunice: >6.4 Glyce jhon contr ol for adult s with diabe eunice: <7.0 Not Available [facility] ([facility]) [address] [place], [address], 09/07/2025 04:11:00 09/06/2009/07/2025 MAGNE SIUM magnesium 2.0 mg/dL 1.6-2. 3 normal Not Available [facility] ([facility]) [address] [place], [address], 09/07/2025 04:11:01 09/14/2009/14/2025 elect romyo gram + nerve condu ction study No observ ation record ed. [email or web address] Trevor Hannah [facility] [address] [place], [place], [address], 09/16/2025 11:29:21 09/15/2009/15/2025 MRI, brain , w/o contr ast [facility] Name: JOSE GREGORY,NBA NIETO A [address] Phys: Katy george MD,Vannesa Weissrutbernardo vaughn, [place] [address] : 1955 Age: 69 Sex: M Acct: [id number] Loc: G.MRI PHONE #: Exam Date: 2024 Status : REG CLI FAX #: Rad# [id number] Unit# [id number] Admit Date: 2024 EXAMS: CPT CODE: [id number] MRI BRAIN W/O CONTRA ST [address]53 MRI brain HISTOR Y: Headac hes COMPAR SANDRA: 2024 CT head FINDIN GS: No acute or subacu te infarc ts apprec iated on diffus ion/AD C sequen bogdan. Mild atroph y and very mild chroni c small vessel ischem ic change in right sims radiat a and centru m semiov sameer white matter and around the classer ior horns of latera l ventri cles [...] gordo: 2024 (1247) Transc riptio nist: DR.BUC XIMENA botello Signat ure Date/T gordo: 2024 (1247) Printe d Date/T gordo: 2024 (3864) BATCH NO: N/A PAGE 1 Signed Report CC'ed Logic: Orderi ng Provid er: TINGUE -POCZA BRITTON CORBY Attend ing Provid er: TINGUE -POCZA BRITTON CORBY Referr ing Provid er: TINGUE -POCZA BRITTON CORBY Consul ting Provid er: TINGUE -POCZA BRITTON CORBY [email or web address] [place], [address], 09/16/2025 11:29:21 Result Notes None recorded. Problems Name Problem SNOMED Code Status Onset Date Resolution Date Notes Provider Name and Address Organization Details Recorded Time Family history of cancer of colon 844834284 Active Pt's mother; Colonosc opy 12/2014 rpt 3yr Narciso Villalta RN [address], [address] , [place] - [facility] 0 15:24:27 Suspecte d COVID-19 898060800 Completed 07/24/2021 Removal Reason: Problem added by user [email or web address] from the COVID-19 watch flag Luma Campos RN [address], [address] , [place] - [facility] 1 09:46:17 Hyperten sive disorder 12660555 Active 2017 Narciso Villalta RN [address], [address] , [place] - [facility] 0 15:24:27 Body mass index 30+ - obesity 687151798 Active 2017 Narciso Villalta RN [address], [place], [address] , [place] - [facility] 0 15:24:27 Chronic kidney disease stage 3 569951894 Active 2019 Corby tejada MD [address], [place], [address] , [place] - [facility] 15:25:10 Problem Notes None recorded. Procedures Surgical History Date Name Laterality Status Provider Name and Address Organization Details Recorded Time 09/06/20 Medication Reconcilliation completed Virginia Henry [place] - [facility] 09/06/2025 16:34:39 09/05/20 Excision of ingrown toenail completed Corby ahmadi MD [address], [place], [address], [place] - [facility] 09/05/2023 09:07:14 01/25/20 21 [...] 15 Colonoscopy completed Narciso Villalta RN [address], [place], [address], [place] - [facility] 12/01/2018 09:39:30 Imaging Results None recorded. Procedure Notes None recorded. Medical Equipment None Reported. Allergies Allergen ID Allergen Name Allergen Category Reaction Reaction Severity Criticality Documentation Date Start Date Code Code System Note Provider Name and Address Organization Details Recorded Time 056382 Product containin g penicilli n (product) medicatio n Not available Not available Not available 10/27/2018 83698 8001 SNOMED Arti Mireles l[place], [place] - [facility] 8 14:39:45 96035 penicilli n G potassium medicatio n rash Not available Not available 08/17/20162007 3 RxNorm React ion: Rash; Comme nt: penic illin G potas sium; Not Available [facility] 6 09:01:24 Medications Name Sig Start Date [...] BY MOUTH TWICE DAILY FOR 7 DAYS 05/06 /2024 completed Not Available Not Available Not Available [...] Updated DateTime 5 182.88 cm 33.1 kg/m2 182195. 54 g 64 /min 99 % 18 /min 0 97.3 [degF] 140/90 mm[Hg] 136/86 mm[Hg] Virginia Henry [place] - [facility] 5 14:38:08 Social History Question Answer Notes LastModified by Organizat ion Details LastModified Time Tobacco Smoking Status Never Smoker Arti mckeon [place] - [facility] 10/27/2018 14:43:12 Do You Have An Advance Directive? No Information not available 10/27/2018 Are You Blind Or Do You Have Difficulty Seeing? No Information not available 01/24/2021 What Is Your Level Of Caffeine Consumption? Moderate Information not available 10/27/2018 How Much Tobacco Do You Chew? None Information not available 10/27/2018 Are You Deaf Or Do You Have Serious Difficulty Hearing? No [email or web address] Information not available 01/24/2021 What Type Of [...] Of Your Most Recent Tobacco Screening? 09/13/2025 [email or web address] Information not available 09/13/2025 How Many Children [...] Vaccine Type Date Status Note Provider Nam yessica and Address Organization Details Recorded Time zoster live 6 completed Not Available [facility] 09/13/2025 14:20:39 Influenza, split virus, trivalent, PF 6 completed Not Available [facility] 09/13/2025 14:20:39 Influenza, high-dose, quadrivalent , PF 3 cancelled patient objection Corby george MD [facility] [address], [place], [address], [facility] - [facility] 09/05/2023 11:51:10 Past Encounters Encounter ID Performer Location Encounter Start Date Encounter Closed Date Diagnosis/Indication Diagnosis SNOMED-CT Code Diagnosis ICD10 Code Diagnosis IMO Codes Diagnosis Note [id number] Corby tejada MD [facility] [address] [place] [address] 09/06/2025 16:30:02 09/06/2025 16:56:48 Paresthesia of hand 272474607 R20.0 R20.2 032764 Hypertensive disorder 38 422101 I10 4670702 [id number] Corby tejada MD [facility] [address] [facility] [place] [address] 09/13/2025 14:20:07 09/13/2025 14:47:57 Hypertensive disorder 65746794 I10 continue current amlodipine and carvedilol as prescribed and lower salt and caffeine intake Health Concerns Section Related Observation LastModified by Organization Detai ls LastModified Time None Recorded Concern Status LastModified by Organization Details LastModified Time None Recorded Payers Encounter Date Sequence Insurance Name Policy Number Policy Dexter Covered Member ID Dexter Member ID Guarantor Name 09/13/2025 1 [place]MEDICARE [place]PLACEMENT HMO) [id number] Paul Dial [id number] Paul Dial Notes Date Note Type Note Provider Name and Address Organization Details Recorded Time 09/13/2025 text/html Mr. Dial is a 69 yo male with essential hypertension, He is taking carvedilol and amlodipine as directed and is feeling well today. Corby Francis MD [facility] [address], [place], [address], [facility] - [facility] 09/13/2025 14:43:52
== END 2025-09-30 23:59 | disposition home or self-care (01) ==
LOC: RT 10:49
PROVIDERS: PCP Family Medicine; Visit Provider Internal Medicine
DX: Z01.810 Encounter for preprocedural cardiovascular examination (principal); I08.0 Rheumatic disorders of both mitral and aortic valves; Z95.3 Presence of xenogenic heart valve
CPT/HCPCS: 93306